=== PATIENT | male | born 2000 | race African-American/Black ===

== ENCOUNTER 2020-03-16 13:01 | Emergency (ER) | payer OTHER, MEDICARE, MEDICAID, SELFPAY ==
[2020-03-16 13:50] VITALS: BP 140/70; PULSE 100; RESP 16; TEMP 37.3; O2SAT 99; BMI 25.8
--- NOTE | 2020-03-16 14:03 | ED.MALEGU ---
HPI - Male Genitourinary General Chief complaint: Urogenital-Male Stated complaint: std recheck Time Seen by Provider: 03/16/20 14:03 Source: patient Mode of arrival: ambulatory Limitations: no limitations History of Present Illness HPI Narrative: 19 y/o male with history of Chlamydia in November presenting for STI check. His emblem drawer in called him today and told him he missed an appointment yesterday and he was due to re-check of his STI status. He is currently asymptomatic. Denies urethral discharge, testicular pain, fever, chills, hematuria, bloody urine. Associated symptoms: Reports denies other symptoms Related Data Sexually active: Yes (with 1 female, protected ) Allergies Allergy/AdvReac Type Severity Reaction Status Date / Time ENVIRONMENTAL Allergy Intermediate ITCHY Uncoded 02/18/20 16:51 WATERY EYES. Review of Systems Review of Systems: Constitutional: No Fever, No Chills ENT/Mouth: No sore throat, No Rhinorrhea, No Swallowing Difficulty Eyes: No Eye Pain, No Swelling, No Redness Cardiovascular: No Chest Pain, No SOB, No Orthopnea, No Edema Respiratory: No Cough, No Sputum, No Wheezing, No dyspnea Gastrointestinal: No Nausea, No Vomiting, No Diarrhea, No abdominal Pain, No Hematochezia, No Melena Genitourinary: No Dysuria, No Urinary Frequency, No Hematuria Musculoskeletal: No joint pain, No Myalgias Skin: No Skin Lesions, No rash Neuro: No Weakness, No Numbness, No Dizziness, No Headache Psych: No Anxiety/Panic, No Depression Heme/Lymph: No Bruising, No Lymphadenopathy Endocrine: No Polyuria, No Polydipsia PMFSH Past Medical History Attestation statement: The following information was validated with the patient. Medical History (Updated 03/16/20 @ 14:48 by GUMARO Alston) No known health problems STI (sexually transmitted infection) Social History Social History Advance Directives: Yes Advance Directives Information Provided: Yes Advance Directives on File: No Physical Exam Vital Signs: Vital Signs: Vital Signs Temp Pulse Resp BP Pulse Ox 03/16/20 13:50 99.1 F 100 16 140/70 H 99 Body Mass Index 25.8 Appearance: Alert. Oriented X3. No acute distress. HEENT: normal inspection Respiratory: No respiratory distress. Skin: Skin warm and dry. Normal skin color. Normal skin turgor. No rashes. exam deferred Neuro: Oriented X 3. No motor deficit. No sensory deficit. Course Course Course Narrative: asymptomatic at this time. he states after he was treated with abx for Chlymadia his symptoms completely resolved. He is currently sexually active with 1 female and uses protection. GC/CT sent but will hold off on treatment right now given he is asympomatic and has no exposures - test being done at request of PCP only. patient agrees with plan. Stable for d/c. Discharge Plan Discharge Clinical Impression: Normal exam Patient Disposition: Home, Self-Care Additional Instructions: You were tested for Chlaymadia and Gonorrhea today. We will call you and start you on antibiotics ONLY if the test is positive. If the test is negative, you will NOT receive a phone call. A copy of this note has been sent to your Assistant Manager Retail.
[2020-03-16 15:01] LABS: Glucose Urine UA NEG (NEG); Leukocyte Esterase Urine NEG (NEG); Nitrite Urine NEG (NEG); Specific Gravity - Urine 1.015 (1.005-1.025); Urine Blood NEG (NEG); Urine Ketones NEG (NEG); Urine Protein NEG (NEG-TRACE)
[2020-03-16 15:04] LABS: Appearance Urine CLEAR; Color Urine YELLOW
[2020-03-17 02:55] LABS: CT PCR NOT DETECTED (Not Detect.); NG PCR NOT DETECTED (Not Detect.)
== END 2020-03-16 14:58 | disposition home or self-care (01) ==
PROVIDERS: Physician Assistant; Emergency Provider Emergency Medicine; PCP Pediatrics
DX: A56.8 Sexually transmitted chlamydial infection of other sites (principal); Z20.2 Contact with and (suspected) exposure to infections with a predominantly sexual mode of transmission
CPT/HCPCS: 81003; 87491; 87591; 99283

== ENCOUNTER 2022-02-19 18:34 | Inpatient (IN) | payer OTHER, MEDICARE, MEDICAID, SELFPAY ==
--- NOTE | 2022-02-19 18:39 | ED.PSYCH ---
HPI - Psych General Chief Complaint: Psychiatric Symptoms <Isabella Kinney NP - Last Filed: 02/20/22 01:47> Stated Complaint: SECTION 12, SI W/PLAN <Isabella Kinney NP - Last Filed: 02/20/22 01:47> Time Seen by Provider: 02/19/22 22:19 <Isabella Kinney NP - Last Filed: 02/20/22 01:47> Source: patient and EMS <Isabella Kinney NP - Last Filed: 02/20/22 01:47> Mode of arrival: EMS <Isabella Kinney NP - Last Filed: 02/20/22 01:47> Limitations: no limitations <Isabella Kinney NP - Last Filed: 02/20/22 01:47> History of Present Illness HPI Narrative: 21-year-old male presents via EMS on section 12 for suicidal ideation. Patient reached out to [facility] in the community prior to presentation to the emergency department. He is not forthcoming about his plan, but states that he is extraordinarily depressed. He does not have any physical complaints at this time. He denies homicidal ideation and substance abuse. <Isabella Kinney NP - Last Filed: 02/20/22 01:47> MD complaint: suicidal ideation and feels depressed <Isabella Kinney NP - Last Filed: 02/20/22 01:47> Onset (ago): month(s) <Isabella Kinney NP - Last Filed: 02/20/22 01:47> Duration: constant and getting worse <Isabella Kinney NP - Last Filed: 02/20/22 01:47> History of same: No <Isabella Kinney NP - Last Filed: 02/20/22 01:47> Relieving factors: none <Isabella Kinney NP - Last Filed: 02/20/22 01:47> Associated psychiatric symptoms: depression and suicidal ideation <Isabella Kinney NP - Last Filed: 02/20/22 01:47> Associated symptoms: denies other symptoms <Isabella Kinney NP - Last Filed: 02/20/22 01:47> Treatments prior to arrival: placed on mental health hold <Isabella Kinney NP - Last Filed: 02/20/22 01:47> If self harm: admits thoughts of self harm and has plan <Isabella Kinney NP - Last Filed: 02/20/22 01:47> Related Data Home Medications: Home Medications Medication Instructions Recorded Confirmed No Known Home Meds 02/20/22 02/20/22 <Isabella Kinney NP - Last Filed: 02/20/22 01:47> Allergies/Adverse Reactions: Allergies Allergy/AdvReac Type Severity Reaction Status Date / Time ENVIRONMENTAL Allergy Intermediate ITCHY Uncoded 02/18/20 16:51 WATERY EYES. <Isabella Kinney NP - Last Filed: 02/20/22 01:47> Review of Systems Review of Systems: Constitutional: No Fever, No Chills ENT/Mouth: No Ear Pain, No Nasal Congestion, No sore throat Eyes: No Eye Pain, No Swelling, No Redness Cardiovascular: No Chest Pain, No SOB Respiratory: No Cough, No Sputum, No Dyspnea Gastrointestinal: No Nausea, No Vomiting, No Diarrhea, No Hematochezia, No Melena Genitourinary: No Dysuria, No Urinary Frequency, No Hematuria Musculoskeletal: No Myalgias Skin: No Skin Lesions, No rash Neuro: No Weakness, No Numbness, No Paresthesias, No Dizziness, No Headache Psych: positive Anxiety, positive Depression, positive SI Heme/Lymph: No Lymphadenopathy Endocrine: No Polyuria, No Polydipsia <Isabella Kinney NP - Last Filed: 02/20/22 01:47> Yes all other systems are reviewed and are negative <Isabella Kinney NP - Last Filed: 02/20/22 01:47> [facility] Past Medical History Attestation statement: The following information was validated with the patient. <Isabella Kinney NP - Last Filed: 02/20/22 01:47> Source: old records reviewed <Isabella Kinney NP - Last Filed: 02/20/22 01:47> Medical History: Medical History No known health problems STI (sexually transmitted infection) <FELICITAS Crawley Last Filed: 02/20/22 01:47> Social History Social History: Social History Advance Directives: No Advance Directives Information Provided: No <Isabella Kinney NP - Last Filed: 02/20/22 01:47> Physical Exam Vital Signs: Vital Signs: Last Vital Signs Temp 97.9 F 02/20/22 06:35 Pulse 80 02/20/22 06:35 Resp 16 02/20/22 06:35 BP 113/70 02/20/22 06:35 Pulse Ox 97 02/20/22 06:35 O2 Del Method 02/20/22 06:35 BMI result Body Mass Index 25.8 <Isabella Kinney NP - Last Filed: 02/20/22 01:47> Vital Signs: Last Vital Signs Temp 97.9 F 02/20/22 06:35 Pulse 80 02/20/22 06:35 Resp 16 02/20/22 06:35 BP 113/70 02/20/22 06:35 Pulse Ox 97 02/20/22 06:35 O2 Del Method 02/20/22 06:35 BMI result Body Mass Index 25.8 <Kiko Mariscal MD - Last Filed: 02/20/22 11:12> Appearance: Alert. Oriented X3. Moderate emotional distress. Eyes: Pupils equal, round and reactive to light. ENT: Pharynx normal. Neck: Normal inspection. Neck supple. CVS: Normal heart rate and rhythm. Pulses normal. Respiratory: No respiratory distress. Breath sounds normal. Abdomen: Soft and nontender. Skin: Skin warm and dry. Normal skin color. Normal skin turgor. Extremities: Gait well-balanced well coordinated. Neuro: No motor deficit. No sensory deficit. Cranial nerves 2-12 intact. <Isabella Kinney NP - Last Filed: 02/20/22 01:47> Course Course Course Narrative: 21-year-old male presents for suicidal ideation, on Section 12 from [facility] in the community. Patient is soft spoken, has poor eye contact, and states to be suicidal but will not disclose his plan. Has felt depression and suicidality for several weeks, worsening over the past few days. He does not report any physical complaints. Is polite, answering questions appropriately. Plan of care is for crisis consult, labs, and psychiatric consult. 01:45 patient is medically cleared. Patient is E SP follow-up in the a.m.. Physician observation at this time. <Isabella Kinney NP - Last Filed: 02/20/22 01:47> Reevaluation(s) Reevaluation #1: Physician observation: patient with increasing depression, not taking any medication since high school, in observation to see if he improves or if he needs admission N to evaluate <Kiko Mariscal MD - Last Filed: 02/20/22 11:12> Time: 08:42 <Kiko Mariscal MD - Last Filed: 02/20/22 11:12> Reevaluation #2: to be admitted, signed section 12 <Kiko Mariscal MD - Last Filed: 02/20/22 11:12> Time: 11:12 <Kiko Mariscal MD - Last Filed: 02/20/22 11:12> MDM - Psych Differential Diagnosis Differential diagnosis: Likely acute psychosis, suicidal ideation, depression, acute anxiety and mood disorder <Isabella Kinney NP - Last Filed: 02/20/22 01:47> Medical Records Attestation: I reviewed the patient's medical records. <Isabella Kinney NP - Last Filed: 02/20/22 01:47> Lab Data Attestation: I reviewed the patient's lab results. <Isabella Kinney NP - Last Filed: 02/20/22 01:47> Result diagrams: : 02/19/22 20:50 02/19/22 20:50 <Isabella Kinney NP - Last Filed: 02/20/22 01:47> Labs: Lab Results 02/19/22 02/19/22 02/19/22 Range/Units 20:50 20:50 20:50 WBC 8.4 (4.8-10.8) X10*3/uL RBC 4.87 (4.60-5.80) X10*6/uL Hgb 13.9 L (14.0-18.0) g/dl Hct 40.6 L (42.0-52.0) % MCV 83.4 (80.0-98.0) fL MCH 28.5 (27.0-33.0) pg MCHC 34.2 (31.0-36.0) g/dl RDW 12.8 (11.0-16.0) % Plt Count 288 (160-400) X10*3/uL MPV 9.2 L (9.4-12.4) fL Immature Gran % (Auto) 0.2 (0.0-0.4) % Neut % (Auto) 67.4 (45-73) % Lymph % (Auto) 24.2 (20-40) % [place] % (Auto) 6.6 (2-11) % Eos % (Auto) 1.4 (0-4) % Baso % (Auto) 0.2 (0-2) % Lymph # (Auto) 2.0 (1.2-4.9) X10*3/uL [place] # (Auto) 0.6 (0.1-1.2) X10*3/uL Eos # (Auto) 0.1 (0.0-0.4) X10*3/uL Baso # (Auto) 0.0 (0.0-0.2) X10*3/uL Abs Immat Gran (auto) 0.02 (0.00-0.03) X10*3/uL Absolute Neuts (auto) 5.7 (2.0-8.3) x10*3/uL Absolute Nucleated RBC 0.000 (0.0-0.012) X10*3/uL Nucleated RBC % (auto) 0.0 (0.0-0.2) /100WBC Sodium 141 (135-145) mmol/L Potassium 4.1 (3.3-5.1) mmol/L Chloride 106 (96-108) mmol/L Carbon Dioxide 25 (22-29) mmol/L Anion Gap 14 (12-20) BUN 14 (9-16) mg/dL Creatinine 0.99 (0.5-1.4) mg/dL Estim Creat Clear Calc 105.6 Estimated GFR > 60 Random Glucose 105 (60-115) mg/dL Calcium 9.9 (8.4-10.2) mg/dL Total Bilirubin 0.5 (0.0-1.0) mg/dL AST 16 (5-37) U/L ALT 16 (0-40) U/L Alkaline Phosphatase 61 (39-117) U/L Total Protein 7.2 (6.5-8.0) g/dL Albumin 4.5 (3.5-5.0) g/dL Urine Opiates Screen Not Detected (Not Detect) Urine Fentanyl Screen Not Detected (Not Detect) Ur Barbiturates Screen Not Detected (Not Detect) Ur Phencyclidine Scrn Not Detected (Not Detect) Ur Amphetamines Screen Not Detected (Not Detect) U Benzodiazepines Scrn Not Detected (Not Detect) Urine Cocaine Screen Not Detected (Not Detect) U Marijuana (THC) Screen POSITIVE H (Not Detect) Ethyl Alcohol < 10 mg/dL COVID-19 (POLY) (Negative) COVID-19 Clin Com 02/19/22 Range/Units 20:50 WBC (4.8-10.8) X10*3/uL RBC (4.60-5.80) X10*6/uL Hgb (14.0-18.0) g/dl Hct (42.0-52.0) % MCV (80.0-98.0) fL MCH (27.0-33.0) pg MCHC (31.0-36.0) g/dl RDW (11.0-16.0) % Plt Count (160-400) X10*3/uL MPV (9.4-12.4) fL Immature Gran % (Auto) (0.0-0.4) % Neut % (Auto) (45-73) % Lymph % (Auto) (20-40) % [place] % (Auto) (2-11) % Eos % (Auto) (0-4) % Baso % (Auto) (0-2) % Lymph # (Auto) (1.2-4.9) X10*3/uL [place] # (Auto) (0.1-1.2) X10*3/uL Eos # (Auto) (0.0-0.4) X10*3/uL Baso # (Auto) (0.0-0.2) X10*3/uL Abs Immat Gran (auto) (0.00-0.03) X10*3/uL Absolute Neuts (auto) (2.0-8.3) x10*3/uL Absolute Nucleated RBC (0.0-0.012) X10*3/uL Nucleated RBC % (auto) (0.0-0.2) /100WBC Sodium (135-145) mmol/L Potassium (3.3-5.1) mmol/L Chloride (96-108) mmol/L Carbon Dioxide (22-29) mmol/L Anion Gap (12-20) BUN (9-16) mg/dL Creatinine (0.5-1.4) mg/dL Estim Creat Clear Calc Estimated GFR Random Glucose (60-115) mg/dL Calcium (8.4-10.2) mg/dL Total Bilirubin (0.0-1.0) mg/dL AST (5-37) U/L ALT (0-40) U/L Alkaline Phosphatase (39-117) U/L Total Protein (6.5-8.0) g/dL Albumin (3.5-5.0) g/dL Urine Opiates Screen (Not Detect) Urine Fentanyl Screen (Not Detect) Ur Barbiturates Screen (Not Detect) Ur Phencyclidine Scrn (Not Detect) Ur Amphetamines Screen (Not Detect) U Benzodiazepines Scrn (Not Detect) Urine Cocaine Screen (Not Detect) U Marijuana (THC) Screen (Not Detect) Ethyl Alcohol mg/dL COVID-19 (POLY) Negative (Negative) COVID-19 Clin Com See Note <Isabella Kinney, FELICITAS - Last Filed: 02/20/22 01:47> Lab Results 02/19/22 02/19/22 02/19/22 Range/Units 20:50 20:50 20:50 WBC 8.4 (4.8-10.8) X10*3/uL RBC 4.87 (4.60-5.80) X10*6/uL Hgb 13.9 L (14.0-18.0) g/dl Hct 40.6 L (42.0-52.0) % MCV 83.4 (80.0-98.0) fL MCH 28.5 (27.0-33.0) pg MCHC 34.2 (31.0-36.0) g/dl RDW 12.8 (11.0-16.0) % Plt Count 288 (160-400) X10*3/uL MPV 9.2 L (9.4-12.4) fL Immature Gran % (Auto) 0.2 (0.0-0.4) % Neut % (Auto) 67.4 (45-73) % Lymph % (Auto) 24.2 (20-40) % [place] % (Auto) 6.6 (2-11) % Eos % (Auto) 1.4 (0-4) % Baso % (Auto) 0.2 (0-2) % Lymph # (Auto) 2.0 (1.2-4.9) X10*3/uL [place] # (Auto) 0.6 (0.1-1.2) X10*3/uL Eos # (Auto) 0.1 (0.0-0.4) X10*3/uL Baso # (Auto) 0.0 (0.0-0.2) X10*3/uL Abs Immat Gran (auto) 0.02 (0.00-0.03) X10*3/uL Absolute Neuts (auto) 5.7 (2.0-8.3) x10*3/uL Absolute Nucleated RBC 0.000 (0.0-0.012) X10*3/uL Nucleated RBC % (auto) 0.0 (0.0-0.2) /100WBC Sodium 141 (135-145) mmol/L Potassium 4.1 (3.3-5.1) mmol/L Chloride 106 (96-108) mmol/L Carbon Dioxide 25 (22-29) mmol/L Anion Gap 14 (12-20) BUN 14 (9-16) mg/dL Creatinine 0.99 (0.5-1.4) mg/dL Estim Creat Clear Calc 105.6 Estimated GFR > 60 Random Glucose 105 (60-115) mg/dL Calcium 9.9 (8.4-10.2) mg/dL Total Bilirubin 0.5 (0.0-1.0) mg/dL AST 16 (5-37) U/L ALT 16 (0-40) U/L Alkaline Phosphatase 61 (39-117) U/L Total Protein 7.2 (6.5-8.0) g/dL Albumin 4.5 (3.5-5.0) g/dL Urine Opiates Screen Not Detected (Not Detect) Urine Fentanyl Screen Not Detected (Not Detect) Ur Barbiturates Screen Not Detected (Not Detect) Ur Phencyclidine Scrn Not Detected (Not Detect) Ur Amphetamines Screen Not Detected (Not Detect) U Benzodiazepines Scrn Not Detected (Not Detect) Urine Cocaine Screen Not Detected (Not Detect) U Marijuana (THC) Screen POSITIVE H (Not Detect) Ethyl Alcohol < 10 mg/dL COVID-19 (POLY) (Negative) COVID-19 Clin Com 02/19/22 Range/Units 20:50 WBC (4.8-10.8) X10*3/uL RBC (4.60-5.80) X10*6/uL Hgb (14.0-18.0) g/dl Hct (42.0-52.0) % MCV (80.0-98.0) fL MCH (27.0-33.0) pg MCHC (31.0-36.0) g/dl RDW (11.0-16.0) % Plt Count (160-400) X10*3/uL MPV (9.4-12.4) fL Immature Gran % (Auto) (0.0-0.4) % Neut % (Auto) (45-73) % Lymph % (Auto) (20-40) % [place] % (Auto) (2-11) % Eos % (Auto) (0-4) % Baso % (Auto) (0-2) % Lymph # (Auto) (1.2-4.9) X10*3/uL [place] # (Auto) (0.1-1.2) X10*3/uL Eos # (Auto) (0.0-0.4) X10*3/uL Baso # (Auto) (0.0-0.2) X10*3/uL Abs Immat Gran (auto) (0.00-0.03) X10*3/uL Absolute Neuts (auto) (2.0-8.3) x10*3/uL Absolute Nucleated RBC (0.0-0.012) X10*3/uL Nucleated RBC % (auto) (0.0-0.2) /100WBC Sodium (135-145) mmol/L Potassium (3.3-5.1) mmol/L Chloride (96-108) mmol/L Carbon Dioxide (22-29) mmol/L Anion Gap (12-20) BUN (9-16) mg/dL Creatinine (0.5-1.4) mg/dL Estim Creat Clear Calc Estimated GFR Random Glucose (60-115) mg/dL Calcium (8.4-10.2) mg/dL Total Bilirubin (0.0-1.0) mg/dL AST (5-37) U/L ALT (0-40) U/L Alkaline Phosphatase (39-117) U/L Total Protein (6.5-8.0) g/dL Albumin (3.5-5.0) g/dL Urine Opiates Screen (Not Detect) Urine Fentanyl Screen (Not Detect) Ur Barbiturates Screen (Not Detect) Ur Phencyclidine Scrn (Not Detect) Ur Amphetamines Screen (Not Detect) U Benzodiazepines Scrn (Not Detect) Urine Cocaine Screen (Not Detect) U Marijuana (THC) Screen (Not Detect) Ethyl Alcohol mg/dL COVID-19 ([facility]Y) Negative (Negative) COVID-19 Clin Com See Note <Kiko Mariscal MD - Last Filed: 02/20/22 11:12> Discharge Plan Discharge Clinical Impression: Suicidal ideation, Depression <Isabella Kinney NP - Last Filed: 02/20/22 01:47> Patient Disposition: Still a Patient <Isabella Kinney NP - Last Filed: 02/20/22 01:47> Prescriptions: No Action No Known Home Meds <Isabella Kinney NP - Last Filed: 02/20/22 01:47>
[2022-02-19 18:49] VITALS: BP 132/76; PULSE 107; O2SAT 99
[2022-02-19 19:17] VITALS: BP 121/82; PULSE 65; RESP 14; TEMP 37.2; O2SAT 99; BMI 25.8
[2022-02-19 20:58] LABS: MANUAL DIFF FLAG NO
[2022-02-19 21:01] LABS: Basophils Percent Auto 0.2 % (0-2); Eosinophils Absolute Auto 0.1 X10*3/uL (0.0-0.4); Eosinophils Percent Auto 1.4 % (0-4); Hematocrit 40.6 % (42.0-52.0); Hemoglobin 13.9 g/dl (14.0-18.0); Imm Gran Abs Auto 0.02 X10*3/uL (0.00-0.03); Imm Gran Pct Auto 0.2 % (0.0-0.4); Lymphocytes Percent Auto 24.2 % (20-40); Mean Corpuscular HGB Conc 34.2 g/dl (31.0-36.0); Mean Corpuscular Hemoglobin 28.5 pg (27.0-33.0); Mean Corpuscular Volume 83.4 fL (80.0-98.0); Mean Platelet Volume 9.2 fL (9.4-12.4); Monocytes Absolute Auto 0.6 X10*3/uL (0.1-1.2); Monocytes Percent Auto 6.6 % (2-11); Neutrophils Absolute Auto 5.7 x10*3/uL (2.0-8.3); Neutrophils Percent Auto 67.4 % (45-73); Platelet Count 288 X10*3/uL (160-400); Red Blood Count 4.87 X10*6/uL (4.60-5.80); Red Cell Distribution Width 12.8 % (11.0-16.0); White Blood Count 8.4 X10*3/uL (4.8-10.8)
[2022-02-19 21:15] LABS: Alanine Aminotransferase 16 U/L (0-40); Albumin Level 4.5 g/dL (3.5-5.0); Alkaline Phosphatase 61 U/L (39-117); Anion Gap 14 (12-20); Aspartate Amino Transferase 16 U/L (5-37); Bilirubin Total 0.5 mg/dL (0.0-1.0); Blood Urea Nitrogen 14 mg/dL (9-16); COVID-19 Test Negative (Negative); Calcium 9.9 mg/dL (8.4-10.2); Carbon Dioxide 25 mmol/L (22-29); Chloride 106 mmol/L (96-108); Creatinine Clr Calc Pharmacy 105.6; Estimated Glomerular Filt Rate > 60; Ethanol < 10 mg/dL; Glucose Random 105 mg/dL (60-115); Potassium 4.1 mmol/L (3.3-5.1); Sodium 141 mmol/L (135-145); Total Protein 7.2 g/dL (6.5-8.0)
[2022-02-19 21:22] LABS: Amphetamine Screen Urine Not Detected (Not Detect); Barbiturates, Urine Not Detected (Not Detect); Benzodiazepines Screen Urine Not Detected (Not Detect); Cannabinoid Screen Urine POSITIVE (Not Detect); Cocaine Screen Urine Not Detected (Not Detect); Fentanyl, urine Not Detected (Not Detect); Opiate Screen Urine Not Detected (Not Detect); Phencyclidine Screen Urine Not Detected (Not Detect)
[2022-02-19] MEDS: Nicotine Polacrilex 2 MG GUM BUCCAL (22:35)
--- NOTE | 2022-02-20 06:27 | PC.NURSE ---
Patient slept though the night, no distress observed/reported, behavior calm, quiet, and depressed, patient remains isolative in his room, patient is currently not on any medication, per mother who is extremely concern about patient mental status reported that patient stop taking his antidepressant after high school, patient was seen by [facility] in the community/disposition is spending/patient will be reevaluated in the morning, behavior non concerning, VSS, will continue to monitor.
[2022-02-20 06:35] VITALS: BP 113/70; PULSE 80; RESP 16; TEMP 36.6; O2SAT 97
--- NOTE | 2022-02-20 07:43 | PC.NURSE ---
patient appears to remain at rest at present respirations are even and unlabored patient appears in no distress
--- NOTE | 2022-02-20 15:08 | PM.PSYCN ---
History of Present Illness Date of Service: t Chief Complaint: SECTION 12, SI W/PLAN Reason for Consult: Suicidal ideation Discussed with referring provider: Yes Sources of Information: patient interviewed, chart reviewed and crisis/core team assessment reviewed HPI Narrative: the patient is a 21-year-old male, single, living with his mother and 2 minor siblings, currently unemployed self refers to the emergency room by in crisis since he reported suicidal ideation. The patient reported that in the past he has received outpatient services, he has never been admitted into the hospital but he admitted for several years that he has had depressive symptoms elicited by depressed mood, anhedonia, lack of energy, feelings of hopelessness and worthlessness. 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 The patient reported that he smokes [employer] 1 a sporadically and he came up positive to ice so he was terminated from his program. The patient reported that this fat making very sad and more depressed and suddenly he started having suicidal ideation without a very clear plan that he refused to disclose. The patient adamantly denies psychotic symptoms. Past Psychiatric History: Denies prior inpatient admissions he received psychotherapy and medication management as a teenager but he cannot remember medications prescribed in the past. currently no treatment Medical Evaluation Reviewed: Yes Review of Systems Review of Systems Yes all other systems are reviewed and are negative [facility] Medical History No known health problems STI (sexually transmitted infection) Family History: denies Social History: the patient was raised by his mother, his biological father was not involved. His milestones were achieved at expected age. He attended regular school but later he was in special education due to behavioral disturbances. He dropout school and later got his GED and he was on [employer] ups and other vocational programs. He lives with his mother and 2 minor siblings. Substance History: Denies history of cocaine or heroin he smokes marijuana sporadically. Trauma History: Refused to elaborate Diagnostics Vital Signs (24Hr): Vital Signs - 24 hr 02/19/22 19:17 02/20/22 06:35 Temperature 98.9 F 97.9 F Pulse Rate 65 80 Respiratory Rate 14 16 Blood Pressure 121/82 113/70 Pulse Oximetry 99 97 Oxygen Delivery Method Room Air Room Air BMI result Body Mass Index 25.8 Labs Results: 02/19/22 20:50 02/19/22 20:50 Labs: Laboratory Results - last 48 hr 02/19/22 02/19/22 02/19/22 20:50 20:50 20:50 WBC 8.4 RBC 4.87 Hgb 13.9 L Hct 40.6 L MCV 83.4 MCH 28.5 MCHC 34.2 RDW 12.8 Plt Count 288 MPV 9.2 L Immature Gran % (Auto) 0.2 Neut % (Auto) 67.4 Lymph % (Auto) 24.2 [place] % (Auto) 6.6 Eos % (Auto) 1.4 Baso % (Auto) 0.2 Lymph # (Auto) 2.0 [place] # (Auto) 0.6 Eos # (Auto) 0.1 Baso # (Auto) 0.0 Abs Immat Gran (auto) 0.02 Absolute Neuts (auto) 5.7 Absolute Nucleated RBC 0.000 Nucleated RBC % (auto) 0.0 Sodium 141 Potassium 4.1 Chloride 106 Carbon Dioxide 25 Anion Gap 14 BUN 14 Creatinine 0.99 Estim Creat Clear Calc 105.6 Estimated GFR > 60 Random Glucose 105 Calcium 9.9 Total Bilirubin 0.5 AST 16 ALT 16 Alkaline Phosphatase 61 Total Protein 7.2 Albumin 4.5 Urine Opiates Screen Not Detected Urine Fentanyl Screen Not Detected Ur Barbiturates Screen Not Detected Ur Phencyclidine Scrn Not Detected Ur Amphetamines Screen Not Detected U Benzodiazepines Scrn Not Detected Urine Cocaine Screen Not Detected U Marijuana (THC) Screen POSITIVE H Ethyl Alcohol < 10 COVID-19 ([facility]) COVID-19 [place] Com 02/19/22 20:50 WBC RBC Hgb Hct MCV MCH MCHC RDW Plt Count MPV Immature Gran % (Auto) Neut % (Auto) Lymph % (Auto) [place] % (Auto) Eos % (Auto) Baso % (Auto) Lymph # (Auto) [place] # (Auto) Eos # (Auto) Baso # (Auto) Abs Immat Gran (auto) Absolute Neuts (auto) Absolute Nucleated RBC Nucleated RBC % (auto) Sodium Potassium Chloride Carbon Dioxide Anion Gap BUN Creatinine Estim Creat Clear Calc Estimated GFR Random Glucose Calcium Total Bilirubin AST ALT Alkaline Phosphatase Total Protein Albumin Urine Opiates Screen Urine Fentanyl Screen Ur Barbiturates Screen Ur Phencyclidine Scrn Ur Amphetamines Screen U Benzodiazepines Scrn Urine Cocaine Screen U Marijuana (THC) Screen Ethyl Alcohol COVID-19 ([facility]) Negative COVID-19 Clin Com See Note Mental Status Exam Mental Status Exam Patient Appearance: Appropriate Patient Orientation: Person and Situation Level of Consciousness: Awake and Alert Patient Behavior: Cooperative Mood Description: Calm Affect Description: Constricted Patient Cognition Impaired: No Ability to Follow Directions: Good Speech Pattern: Clear Hallucinations: None Delusions: Not Present Thought Process: Linear Thought Content: positive for Circumstantial Judgement: Fair Medications Medications Current Medications Nicotine Polacrilex (Nicotine Polacrilex 2 Mg Gum) 2 mg BUCCAL Q2H PRN PRN Reason: Nicotine Cravings Last Admin: 02/19/22 22:35 Dose: 2 mg Allergies Allergies Allergy/AdvReac Type Severity Reaction Status Date / Time ENVIRONMENTAL Allergy Intermediate ITCHY Uncoded 02/18/20 16:51 WATERY EYES. Assessment & Plan Assessment & Plan (1) Major depressive disorder: Status: Acute Code(s): F32.9 - Major depressive disorder, single episode, unspecified (2) Cannabis use disorder: Status: Acute Code(s): F12.90 - Cannabis use, unspecified, uncomplicated Plan the patient is a young male with a past history of behavioral disturbance as a teenager and dysphoria, currently on no treatment admitted for suicidal ideation and exacerbation of depressions after he lost his vocational program. The patient denies active psychotic symptoms and he wants treatment. Plan 1. Gather collateral information. 2. The patient has inpatient level of care criteria, apparently he has been admitted at M3. I spent __20____ minutes with the patient and/or on the patient floor today, greater than?50% of which was spent counseling/coordinating care. Informed Consent: understands
[2022-02-20 23:45] VITALS: BP 139/80; PULSE 68; RESP 16; TEMP 36.7; O2SAT 99
[2022-02-21] MEDS: traZODone HCL 50 MG TABLET PO ×2 (01:00→21:44)
[2022-02-21] MEDS: Nicotine Polacrilex 2 MG GUM BUCCAL ×2 (01:00→17:18)
[2022-02-21] MEDS: hydrOXYzine HCL 25 MG TABLET PO (01:00)
--- NOTE | 2022-02-21 04:28 | PC.NURSE ---
Pt signed a 3 day notice upon admission to unit, up on 02/23/22.
--- NOTE | 2022-02-21 05:05 | PC.ADMIT ---
Addendum entered by Cindy Bae RN 02/21/22 05:09: Pt is 21 yo male admitted to unit after referral from [facility] through the ED. Arrived on unit at 2154. Pt had signed a CV, upon admission to unit pt signed a 3day notice that will be up on 02/23. Pt denies any medical issues. Pt denies current substance use. Stated has not used THC in 5 weeks but utox was positive for THC. Pt states uses Sean pouches approximately 4-5 daily, nicotine replacement pouches. Wants to try nicotine patch lowest dose as he feels 14mg would be too high for him. Pt stated that he was thrown out of his [employer] program because he tested positive for THC. Pt states he hasn't used THC for 5 weeks at least. In addition to this event, pt stated he gave up his THC, lost his [employer] position in class, has been trying to get a car and his license and he found himself googling ways to end his life. At this point pt realized his thinking was wrong, became afraid and called a hotline for help, then routed through [facility], was taken by EMS to [facility]. Pt states he has a lack of support from friends and family at this time. Pt presents in hospital [facility] with depressed affect. Linear and clear thinking and pt is future oriented. Pt would like to be able to get therapist and on effective med for depression, states prozac did work for him years ago but he felt it stopped working and he stopped taking it. Provider stonecutter apprentice hand Peggy notified of admission and orders obtained. Pt placed on 15 min safety checks. Pt reports feeling safe in hospital. Original Note: Pt is 21 yo male admitted to unit after referral from [facility] through the ED. Arrived on unit at 2154. Pt had signed a CV, upon admission to unit pt signed a 3day notice that will be up on 02/23. Pt denies any medical issues. Pt denies substamnc
[2022-02-21 08:00] VITALS: BP 101/70; PULSE 70; RESP 20; TEMP 36.7; O2SAT 97
--- NOTE | 2022-02-21 09:30 | HO.PSYADMNOT ---
HPI Date of Service: 02/21/22 Chief Complaint: depression, si Sources of Information: patient interviewed, chart reviewed and crisis/core team assessment reviewed HPI Subjective Notes: Hallman Warning, Conditional Voluntary and 3 Day Narrative: Mr. Antonio is a 21 year-old male with hx of MDD. He called suicide line who referred him to crisis. He self presented to [facility] reporting suicidal ideation in context of being asked to leave academic program through [employer] as his utox was still positive for cannabis after more than 40 days when he was asked to stop using. Pt denies using any cannabis and states he felt frustrated overwhelmed, disappointed. On the unit, pt reports feeling less overwhelmed in that he reports he had some time to think about his future and that there are other options for him is he can't return to the program. He denies suicidal or homicidal ideation. However, he reports feeling depressed, not suicidal for sometime. He reports living with his mother and siblings. He reports some difficulties with relationship with his mother and at times not feeling supported by her. He denies hx of VH/AH. He reports sleeping well. No changes in appetite. No hx of hypomania or david. No hx of suicide attempts. Past Psychiatric History: Denies prior inpatient admissions he received psychotherapy and medication management as a teenager but he cannot remember medications prescribed in the past. currently no treatment Past med trials: prozasera Suicide attempts: none Medical Evaluation Reviewed: Yes [facility] Medical History No known health problems STI (sexually transmitted infection) Family History: denies Social History: the patient was raised by his mother, his biological father was not involved. His milestones were achieved at expected age. He attended regular school but later he was in special education due to behavioral disturbances. He dropout school and later got his GED and he was on [employer] and other vocational programs. He lives with his mother and 2 minor siblings. Trauma History: Refused to elaborate Diagnostics Vital Signs (24Hr): Vital Signs - 24 hr 02/20/22 23:45 Temperature 98.1 F Pulse Rate 68 Respiratory Rate 16 Blood Pressure 139/80 Pulse Oximetry 99 Oxygen Delivery Method Room Air BMI result Body Mass Index 25.8 Labs Results: 02/19/22 20:50 02/19/22 20:50 Labs: Laboratory Results - last 48 hr 02/19/22 02/19/22 02/19/22 20:50 20:50 20:50 WBC 8.4 RBC 4.87 Hgb 13.9 L Hct 40.6 L MCV 83.4 MCH 28.5 MCHC 34.2 RDW 12.8 Plt Count 288 MPV 9.2 L Immature Gran % (Auto) 0.2 Neut % (Auto) 67.4 Lymph % (Auto) 24.2 [place] % (Auto) 6.6 Eos % (Auto) 1.4 Baso % (Auto) 0.2 Lymph # (Auto) 2.0 [place] # (Auto) 0.6 Eos # (Auto) 0.1 Baso # (Auto) 0.0 Abs Immat Gran (auto) 0.02 Absolute Neuts (auto) 5.7 Absolute Nucleated RBC 0.000 Nucleated RBC % (auto) 0.0 Sodium 141 Potassium 4.1 Chloride 106 Carbon Dioxide 25 Anion Gap 14 BUN 14 Creatinine 0.99 Estim Creat Clear Calc 105.6 Estimated GFR > 60 Random Glucose 105 Calcium 9.9 Total Bilirubin 0.5 AST 16 ALT 16 Alkaline Phosphatase 61 Total Protein 7.2 Albumin 4.5 Urine Opiates Screen Not Detected Urine Fentanyl Screen Not Detected Ur Barbiturates Screen Not Detected Ur Phencyclidine Scrn Not Detected Ur Amphetamines Screen Not Detected U Benzodiazepines Scrn Not Detected Urine Cocaine Screen Not Detected U Marijuana (THC) Screen POSITIVE H Ethyl Alcohol < 10 COVID-19 (POLY) COVID-[employer] 02/19/22 20:50 WBC RBC Hgb Hct MCV MCH MCHC RDW Plt Count MPV Immature Gran % (Auto) Neut % (Auto) Lymph % (Auto) [place] % (Auto) Eos % (Auto) Baso % (Auto) Lymph # (Auto) [place] # (Auto) Eos # (Auto) Baso # (Auto) Abs Immat Gran (auto) Absolute Neuts (auto) Absolute Nucleated RBC Nucleated RBC % (auto) Sodium Potassium Chloride Carbon Dioxide Anion Gap BUN Creatinine Estim Creat Clear Calc Estimated GFR Random Glucose Calcium Total Bilirubin AST ALT Alkaline Phosphatase Total Protein Albumin Urine Opiates Screen Urine Fentanyl Screen Ur Barbiturates Screen Ur Phencyclidine Scrn Ur Amphetamines Screen U Benzodiazepines Scrn Urine Cocaine Screen U Marijuana (THC) Screen Ethyl Alcohol COVID-19 (POLY) Negative COVID-19 Interactive TKO Com See Note Meds/Allergies Meds Home Medications Medication Instructions Recorded Confirmed Type No Known Home Meds 02/20/22 02/20/22 History Allergies Allergies Allergy/AdvReac Type Severity Reaction Status Date / Time ENVIRONMENTAL Allergy Intermediate ITCHY Uncoded 02/18/20 16:51 WATERY EYES. Mental Status Exam Mental Status Exam Narrative: Appearance: casually groomed, fair hygiene in NAD Behavior:cooperative psychomotor: no agitation or retardation noted Speech: clear, normal rate/rhythm/volume, spontaneous Thought process: linear Thought content: no signs of psychosis, future oriented more optimistic Mood: better Affect: congruent SI:none HI:none VH/AH:none Delusions:none Insight/judgment:fair x 2. Memory/cog: alert, oriented x 3. grossly intact to conversational testing. Assessment & Plan Assessment & Plan (1) Major depressive disorder: Status: Acute Code(s): F32.9 - Major depressive disorder, single episode, unspecified Plan Mr. Antonio is a 21 year-old male with hx of MDD, increase depression and SI in context of being asked ot leave [employer] after he tested positive for cannabis more than 30 days after asked not to use any substances. Pt reports he has not used for more than one month and that he does not know why it continues to be positive. We discussed risks, benefits and alternative treatment options. Pt agrees to start prozac as he has been struggling with depression for a long time. he denies SI/HI. He also agrees to be connected with OP providers. PLAN 1. admit to m3, cv, 15 mins checks 2. start prozac 10mg po daily- titrate. 3. obtain collateral information 4. aftercare planning. Patient educated on: diagnosis Reason for continued inpatient stay Substantial Risk for: harm to self
[2022-02-21 09:33] LABS: Estimated Average Glucose 108 mg/dL; Hemoglobin A1c % 5.4 %
[2022-02-21 10:14] LABS: Cholesterol 163 mg/dL; HDL Cholesterol 34 mg/dL; LDL Cholesterol Calculated 112 mg/dl; Triglycerides 87 mg/dL
[2022-02-21 10:38] LABS: Free T4 (Free Thyroxine) 1.01 ng/dL (0.71-1.85); Thyroid Stimulating Hormone 1.89 uIU/mL (0.32-4.0)
[2022-02-21 10:50] LABS: Folate 17.6 ng/mL (> or = 4.0); Vitamin B12 333 pg/mL (200-900)
[2022-02-21] MEDS: FLUoxetine HCl Oral Solution 20 MG/5 ML SOLUTION 10 MG PO (17:18)
[2022-02-21 19:00] VITALS: BP 128/72; PULSE 69; RESP 16; TEMP 36.6; O2SAT 99
[2022-02-22 07:00] VITALS: BMI 26.2
[2022-02-22 09:00] VITALS: BP 122/80; PULSE 97; RESP 18; TEMP 36.5; O2SAT 98
[2022-02-22] MEDS: FLUoxetine HCl Oral Solution 20 MG/5 ML SOLUTION 10 MG PO (09:21)
[2022-02-22] MEDS: Nicotine Polacrilex 2 MG GUM BUCCAL ×2 (09:21→19:10)
--- NOTE | 2022-02-22 13:40 | HO.PSYCHPN ---
Subjective Subjective Date of Service: 02/22/22 Reason For Visit: depression, si Subjective Notes: Conditional Voluntary Interim History: pt reports feeling better, future oriented. He states this time off has helped me put things in perspective. 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 No SI/HI. he reports he slept well. ready for dc tomorrow. Medication Compliance: Yes Review of Systems Review of Systems Constitutional: No Fever, No Chills ENT/Mouth: No Ear Pain, No Nasal Congestion, No sore throat Eyes: No Eye Pain, No Swelling, No Redness Cardiovascular: No Chest Pain, No SOB Respiratory: No Cough, No Sputum, No Dyspnea Gastrointestinal: No Nausea, No Vomiting, No Diarrhea, No Hematochezia, No Melena Genitourinary: No Dysuria, No Urinary Frequency, No Hematuria Musculoskeletal: No Myalgias Skin: No Skin Lesions, No rash Neuro: No Weakness, No Numbness, No Paresthesias, No Dizziness, No Headache Psych: positive Anxiety, positive Depression, positive SI Heme/Lymph: No Lymphadenopathy Endocrine: No Polyuria, No Polydipsia Yes all other systems are reviewed and are negative Constitutional: Reports no additional constitutional complaints Eyes: Reports no additional eye complaints Reports system reviewed and no additional complaints, except as documented Cardiovascular: Reports no additional cardiovascular complaints Mental Status Exam Mental Status Exam Narrative: Appearance: casually groomed, fair hygiene in NAD Behavior:cooperative psychomotor: no agitation or retardation noted Speech: clear, normal rate/rhythm/volume, spontaneous Thought process: linear Thought content: no signs of psychosis, future oriented more optimistic Mood: better Affect: congruent SI:none HI:none VH/AH:none Delusions:none Insight/judgment:fair x 2. Memory/cog: alert, oriented x 3. grossly intact to conversational testing. Diagnostics Vital Signs (24Hr): Vital Signs - 24 hr 02/21/22 19:00 02/22/22 09:00 Temperature 97.8 F 97.7 F Pulse Rate 69 97 Respiratory Rate 16 18 Blood Pressure 128/72 122/80 Pulse Oximetry 99 98 Oxygen Delivery Method Room Air Room Air BMI result Body Mass Index 26.2 Labs Results: 02/19/22 20:50 02/19/22 20:50 Labs: Laboratory Results - last 48 hr 02/21/22 02/21/22 02/21/22 09:11 09:11 09:11 Estimat Average Glucose 108 Hemoglobin A1c % 5.4 Magnesium 2.0 Triglycerides 87 Cholesterol 163 LDL Cholesterol, Calc 112 HDL Cholesterol 34 Vitamin B12 333 Folate 17.6 TSH 1.89 Free T4 1.01 Medications Medications Current Medications Acetaminophen (Acetaminophen 325 Mg Tablet) 650 mg PO Q6H PRN PRN Reason: Headache/Pain Mild Scale (1-3) Al Hydroxide/Mg Hydroxide (Magnesium Hydrox/Alum Hydrox 30 Ml Oral.Susp) 30 ml PO Q6H PRN PRN Reason: Heartburn/Nausea Fluoxetine HCl (Fluoxetine Hcl 20 Mg Capsule) 20 mg PO DAILY LEILA Hydroxyzine HCl (Hydroxyzine Hcl 25 Mg Tablet) 25 mg PO Q6H PRN PRN Reason: Anxiety Last Admin: 02/21/22 01:00 Dose: 25 mg Magnesium Hydroxide (Milk Of Magnesia 30 Ml Oral.Susp) 30 ml PO DAILY PRN PRN Reason: Constipation Nicotine Polacrilex (Nicotine Polacrilex 2 Mg Gum) 2 mg BUCCAL Q2H PRN PRN Reason: Nicotine Cravings Last Admin: 02/22/22 09:21 Dose: 2 mg Trazodone HCl (Trazodone Hcl 50 Mg Tablet) 50 mg PO BEDTIME PRN PRN Reason: Insomnia Last Admin: 02/21/22 21:44 Dose: 50 mg Allergies Allergies Allergy/AdvReac Type Severity Reaction Status Date / Time ENVIRONMENTAL Allergy Intermediate ITCHY Uncoded 02/18/20 16:51 WATERY EYES. Assessment & Plan Assessment & Plan (1) Major depressive disorder: Status: Acute Code(s): F32.9 - Major depressive disorder, single episode, unspecified Plan Mr. Antonio is a 21 year-old male with hx of MDD, increase depression and SI in context of being asked ot leave [email or web address] after he tested positive for cannabis more than 30 days after asked not to use any substances. Pt reports he has not used for more than one month and that he does not know why it continues to be positive. We discussed risks, benefits and alternative treatment options. Pt agrees to start prozac as he has been struggling with depression for a long time. he denies SI/HI. He also agrees to be connected with OP providers. PLAN 1. admit to m3, cv, 15 mins checks 2. start prozac 10mg po daily- titrate. 3. obtain collateral information 4. aftercare planning. 02/22 continue current meds. I spent minutes with the patient and/or on the patient floor today, greater than?50% of which was spent counseling/coordinating care. Reason for contiued inpatient stay Substantial Risk for: stable for discharge
[2022-02-22] MEDS: traZODone HCL 50 MG TABLET PO (21:29)
[2022-02-22] MEDS: hydrOXYzine HCL 25 MG TABLET PO (21:29)
[2022-02-23 08:00] VITALS: BP 119/82; PULSE 74; RESP 17; TEMP 36.6; O2SAT 98
--- NOTE | 2022-02-23 09:59 | P.DS_ITS ---
DS: Providers Provider Date of Service: 02/23/22 Date of admission: 02/20/22 21:32 Primary care physician: Unknown Physician DS: Diagnosis Discharge Diagnosis (1) Major depressive disorder: Status: Acute DS: Medications Discharge Medications Home Medications: Previous Rx's Medication Instructions Recorded fluoxetine 20 mg capsule 20 mg PO DAILY #30 caps 02/23/22 nicotine (polacrilex) 2 mg gum 2 mg buccal Q2H PRN Nicotine 02/23/22 Cravings #30 ea trazodone 50 mg tablet 50 mg PO BEDTIME PRN Insomnia #30 02/23/22 tabs Mental Status Exam Mental Status Exam Narrative: Appearance: casually groomed, fair hygiene in NAD Behavior:cooperative psychomotor: no agitation or retardation noted Speech: clear, normal rate/rhythm/volume, spontaneous Thought process: linear Thought content: no signs of psychosis, future oriented more optimistic Mood: better Affect: congruent SI:none HI:none VH/AH:none Delusions:none Insight/judgment:fair x 2. Memory/cog: alert, oriented x 3. grossly intact to conversational testing. Data Data Completed and Pending Completed studies during hospitalization [Text1]: 02/19/22 02/19/22 02/19/22 20:50 20:50 20:50 WBC 8.4 RBC 4.87 Hgb 13.9 L Hct 40.6 L MCV 83.4 MCH 28.5 MCHC 34.2 RDW 12.8 Plt Count 288 MPV 9.2 L Immature Gran % (Auto) 0.2 Neut % (Auto) 67.4 Lymph % (Auto) 24.2 [place] % (Auto) 6.6 Eos % (Auto) 1.4 Baso % (Auto) 0.2 Lymph # (Auto) 2.0 [place] # (Auto) 0.6 Eos # (Auto) 0.1 Baso # (Auto) 0.0 Abs Immat Gran (auto) 0.02 Absolute Neuts (auto) 5.7 Absolute Nucleated RBC 0.000 Nucleated RBC % (auto) 0.0 Sodium 141 Potassium 4.1 Chloride 106 Carbon Dioxide 25 Anion Gap 14 BUN 14 Creatinine 0.99 Estim Creat Clear Calc 105.6 Estimated GFR > 60 Random Glucose 105 Estimat Average Glucose Hemoglobin A1c % Calcium 9.9 Magnesium Total Bilirubin 0.5 AST 16 ALT 16 Alkaline Phosphatase 61 Total Protein 7.2 Albumin 4.5 Triglycerides Cholesterol LDL Cholesterol, Calc HDL Cholesterol Vitamin B12 Folate TSH Free T4 Urine Opiates Screen Not Detected Urine Fentanyl Screen Not Detected Ur Barbiturates Screen Not Detected Ur Phencyclidine Scrn Not Detected Ur Amphetamines Screen Not Detected U Benzodiazepines Scrn Not Detected Urine Cocaine Screen Not Detected U Marijuana (THC) Screen POSITIVE H Ethyl Alcohol < 10 COVID-19 (POLY) COVID-19 Clin Com 02/19/22 02/21/22 02/21/22 20:50 09:11 09:11 WBC RBC Hgb Hct MCV MCH MCHC RDW Plt Count MPV Immature Gran % (Auto) Neut % (Auto) Lymph % (Auto) [place] % (Auto) Eos % (Auto) Baso % (Auto) Lymph # (Auto) [place] # (Auto) Eos # (Auto) Baso # (Auto) Abs Immat Gran (auto) Absolute Neuts (auto) Absolute Nucleated RBC Nucleated RBC % (auto) Sodium Potassium Chloride Carbon Dioxide Anion Gap BUN Creatinine Estim Creat Clear Calc Estimated GFR Random Glucose Estimat Average Glucose 108 Hemoglobin A1c % 5.4 Calcium Magnesium 2.0 Total Bilirubin AST ALT Alkaline Phosphatase Total Protein Albumin Triglycerides 87 Cholesterol 163 LDL Cholesterol, Calc 112 HDL Cholesterol 34 Vitamin B12 Folate TSH 1.89 Free T4 1.01 Urine Opiates Screen Urine Fentanyl Screen Ur Barbiturates Screen Ur Phencyclidine Scrn Ur Amphetamines Screen U Benzodiazepines Scrn Urine Cocaine Screen U Marijuana (THC) Screen Ethyl Alcohol COVID-19 (POLY) Negative COVID-19 Clin Com See Note 02/21/22 09:11 WBC RBC Hgb Hct MCV MCH MCHC RDW Plt Count MPV Immature Gran % (Auto) Neut % (Auto) Lymph % (Auto) [place] % (Auto) Eos % (Auto) Baso % (Auto) Lymph # (Auto) [place] # (Auto) Eos # (Auto) Baso # (Auto) Abs Immat Gran (auto) Absolute Neuts (auto) Absolute Nucleated RBC Nucleated RBC % (auto) Sodium Potassium Chloride Carbon Dioxide Anion Gap BUN Creatinine Estim Creat Clear Calc Estimated GFR Random Glucose Estimat Average Glucose Hemoglobin A1c % Calcium Magnesium Total Bilirubin AST ALT Alkaline Phosphatase Total Protein Albumin Triglycerides Cholesterol LDL Cholesterol, Calc HDL Cholesterol Vitamin B12 333 Folate 17.6 TSH Free T4 Urine Opiates Screen Urine Fentanyl Screen Ur Barbiturates Screen Ur Phencyclidine Scrn Ur Amphetamines Screen U Benzodiazepines Scrn Urine Cocaine Screen U Marijuana (THC) Screen Ethyl Alcohol COVID-19 (POLY) COVID-19 Clin Com DS: Summary Hospital Course Hospital Course: Subjective Notes: Hallman Warning, Conditional Voluntary and 3 Day Narrative: Mr. Antonio is a 21 year-old male with hx of MDD. He called suicide line who referred him to crisis. He self presented to [facility] reporting suicidal ideation in context of being asked to leave academic program through [employer] as his utox was still positive for cannabis after more than 40 days when he was asked to stop using. Pt denies using any cannabis and states he felt frustrated overwhelmed, disappointed. On the unit, pt reports feeling less overwhelmed in that he reports he had some time to think about his future and that there are other options for him is he can't return to the program. He denies suicidal or homicidal ideation. However, he reports feeling depressed, not suicidal for sometime. He reports living with his mother and siblings. He reports some difficulties with relationship with his mother and at times not feeling supported by her. He denies hx of VH/AH. He reports sleeping well. No changes in appetite. No hx of hypomania or david. No hx of suicide attempts. Past Psychiatric History: ? Denies prior inpatient admissions he received psychotherapy and medication management as a teenager but he cannot remember medications prescribed in the past. currently no treatment ? Past med trials: prozac Suicide attempts: none Medical Evaluation Reviewed: Yes HOSPITAL COURSE On the unit, Mr. Antonio was admitted on a CV and placed on 15 minutes checks for safety. Pt presented slightly improved mood in that he reported feeling less overwhelmed and distressed about being terminated from [employer]. He presented as more future oriented and looking into other options to continue his studies. However, pt did report hx of depression and agreed to start antidepressant. We discussed risks, benefits and alternative treatment options. He agreed to start prozac. His affect gradually presented as brighter. He denied suicidal or homicidal ideation. No signs of aggression towards self or others. No signs of aggression towards self or others. Collateral information gathered from mother who denies any safety concerns at time of discharge. Pt agreed to continue OP psych tx. Status at Discharge Cognitive/behavioral status at discharge: Pt with brighter, non labile mood. No SI/HI. No VH/AH. Future oriented. No signs of aggression towards self or others others. Functional status at discharge: independent ambulation Overall status at discharge: patient is progressing back to baseline Time Spent with Patient Time attestation: Total time spent providing and/or coordinating discharge services: Discharge Plan Discharge Patient Disposition: Home Health Service Discharge Diagnosis: Mdd, recurrent, moderate Referrals: BELINDA MCGOVERN, THERAPY INTAKE [Other] - 02/26/22 3:00 pm (VIDEO CALL AP POINTMENT) ROXANA [facility]OWAY ESOL TEACHER [Other] - 1 Week (PHONE WITH GENERAL QUESTIONS IF NEEDED) [facility] [Physician] - 1 Week Discharge Medications: New nicotine (polacrilex) 2 mg Gum 2 mg buccal Q2H PRN (Reason: Nicotine Cravings) Qty: 30 0RF trazodone 50 mg Tablet 50 mg PO BEDTIME PRN (Reason: Insomnia) Qty: 30 0RF fluoxetine 20 mg Capsule 20 mg PO DAILY Qty: 30 0RF Discharge Orders: Discharge Order (Routine); Ordered 02/23/22 Ordered By: Jessi Tapia Diet: Regular diet Activity on Discharge: As tolerated Stand Alone Forms: Patient Portal Discharge page Care Plan Goals: 1. Maintain mood 2. No SI/HI Health Concerns: Follow up with PCP Plan of Treatment: 1. Take medications as prescribed 2. Go to nearest ED or call 911 in event of emergency Assessment: Pt with brighter affect. No SI/HI. No signs of psychosis/delusions. Future oriented. No signs of aggression towards self or others.
[2022-02-23] MEDS: FLUoxetine HCl 20 MG CAPSULE PO (10:20)
[2022-02-23] MEDS: Nicotine Polacrilex 2 MG GUM BUCCAL (10:24)
--- NOTE | 2022-02-23 12:43 | PC.NURSE ---
pt discharged home with, mother. Pt dischrged home to family. Pt denies ideation or intent to hurt self or others. Pt verbalized understanding of discharge plan and medications
== END 2022-02-23 11:30 | disposition home health service (06) | DRG 881 ==
LOC: HO.ED 02-20 14:54 → HO.PADLT16 02-20 21:39
PROVIDERS: Nurse Practitioner Family; Registered Nurse; Admitting Provider Psychiatry & Neurology Psychiatry; Emergency Provider Emergency Medicine; Visit Provider Social Worker
DX: F32.9 Major depressive disorder, single episode, unspecified (principal); R45.851 Suicidal ideations; F17.220 Nicotine dependence, chewing tobacco, uncomplicated; Z71.6 Tobacco abuse counseling; Z20.822 Contact with and (suspected) exposure to COVID-19; Z56.0 Unemployment, unspecified
CPT/HCPCS: 36415; 80053; 80061; 80307; 82077; 82607; 82746; 83036; 83735; 84439; 84443; 85025; 87635; 99285

== ENCOUNTER 2023-04-19 10:46 | Emergency (ER) | payer OTHER, MEDICARE, MEDICAID, SELFPAY ==
--- NOTE | ~2023-04-19 | XR_ITS ---
EXAMINATION: XR CHEST CLINICAL INFORMATION: Cough and shortness of breath. COMPARISON: None available. TECHNIQUE: 2 views of the chest were obtained. FINDINGS: The lungs are well expanded. No focal consolidation. No pleural effusion. Cardiac silhouette is within normal limits. XR/XR chest 2V IMPRESSION: No acute abnormality.
[2023-04-19 10:50] VITALS: BP 132/86; PULSE 69; RESP 16; TEMP 36.7; O2SAT 98; BMI 26.1
[2023-04-19 11:16] LABS: COVID-19 Test Negative (Negative); IDNOW Serial# BCCEAD1C
--- NOTE | 2023-04-19 11:32 | ED.URI ---
HPI - URI/Sore Throat General Chief Complaint: Upper Respiratory Symptoms Stated Complaint: Diff Breathing Time Seen by Provider: 04/19/23 11:08 Source: patient, family, RN notes reviewed and old records reviewed Mode of arrival: ambulatory History of Present Illness HPI Narrative: 22-year-old male with a past medical history of asthma, presenting to the ED complaining of productive cough, SOB, chest discomfort/tightness, and sore throat x2 weeks. States he does not have inhalers or neb machine at home. Denies fever, chills, recent travel, pedal edema, sick contacts, difficulty or inability to swallow MD elicited complaint: cough Related Data Previous Rx's Medication Instructions Recorded nicotine (polacrilex) 2 mg gum 2 mg buccal Q2H PRN Nicotine 02/23/22 Cravings #30 ea fluoxetine 20 mg capsule (Prozac) 20 mg PO DAILY #30 caps 03/26/22 trazodone 50 mg tablet 50 mg PO BEDTIME #30 tabs 03/26/22 albuterol sulfate 90 mcg/actuation 2 puff inhalation Q4-6H PRN 04/19/23 aerosol inhaler shortness of breath or wheezing #6.7 grams prednisone 20 mg tablet 40 mg (2 x 20 mg) PO DAILY 5 days 04/19/23 #10 tabs Allergies Allergy/AdvReac Type Severity Reaction Status Date / Time ENVIRONMENTAL Allergy Intermediate ITCHY Uncoded 02/18/20 16:51 WATERY EYES. Review of Systems Review of Systems: Constitutional: No Fever, No Chills ENT/Mouth: No Ear Pain, No Nasal Congestion, No Sinus Pain, No Hoarseness, + sore throat, No Rhinorrhea, No Swallowing Difficulty Cardiovascular: + Chest Pain, + SOB Respiratory: + Cough, + Sputum, + Wheezing Gastrointestinal: No Nausea, No Vomiting, No Diarrhea, No Constipation, No Abdominal pain Musculoskeletal: No joint pain, No Myalgias, No Joint Swelling Skin: No Skin Lesions, No rash Neuro: No Weakness Yes all other systems are reviewed and are negative Constitutional: Constitutional: Reports as per [facility] Past Medical History Attestation statement: The following information was validated with the patient. Source: old records reviewed Medical History STI (sexually transmitted infection) No known health problems Social History Social History Household Members: Family Household Members Other:: Mom, 2 younger brothers Housing: Apartment Do you presently have visiting nurse or other home services: No Patient Tobacco Use Status: Current everyday Tobacco user Tobacco use type: Smokeless Tobacco e-Cigarette/Vaping Use: Never Used Second Hand Smoke Exposure: No Substance Use Type: Marijuana Advance Directives: No Advance Directives Information Provided: No service: No Physical Exam Vital Signs: Vital Signs: Last Vital Signs Temp 98.1 F 04/19/23 10:50 Pulse 72 04/19/23 12:11 Resp 16 04/19/23 12:11 BP 132/86 04/19/23 10:50 Pulse Ox 98 04/19/23 10:50 O2 Del Method Room Air 04/19/23 10:50 BMI result Body Mass Index 26.1 Const: General: cooperative, healthy appearing, no acute distress, alert and awake Orientation/consciousness: patient oriented x3 Limitations: no limitations HEENT: Head: Yes normal to inspection and Yes atraumatic Ears: hearing grossly normal bilaterally General nose exam: Normal external nose present Face and sinus: Yes normal facial exam Throat: Yes tonsils normal, Yes uvula midline, No peritonsillar mass, Yes posterior oropharynx abnormal (Erythematous. No exudates), No uvula laterally displaced and No uvular edema Eyes: General: appearance normal, both eyes and all related structures EOM: EOMs intact bilaterally Neck: Neck: Yes normal visual inspection and Yes no meningeal signs Resp: Effort & Inspection: normal respiratory effort and no respiratory distress Auscultation: wheezes expiratory wheezes (mild) and throughout Cardio: Rate: regular rate Heart sounds: S1 normal heart sound present and S2 normal heart sound present Skin: Rashes: no rashes Wounds: no wounds Neuro: General: patient oriented x3, tone normal and no meningeal signs Cranial nerves: Yes CN's II-XII intact bilaterally Gait exam (Neuro): Normal gait present Extrem: General: Yes normal to inspection Course Course Course Narrative: XR chest 2V IMPRESSION: No acute abnormality. -COVID and strep negative Results discussed with patient including worrisome signs and symptoms and strict return precautions, and when to return to the emergency department. They verbalized understanding and feel safe for discharge at this time. Medications Administered Discontinued Medications Generic Name Dose Route Start Last Admin Trade Name Nitoq PRN Reason Stop Dose Admin Albuterol/Ipratropium 3 ml 04/19/23 11:35 04/19/23 12:09 Albuterol/Iprat 2.5/0.5mg 3 Ml Ampul.Neb INHALE 04/19/23 11:36 3 ml ONCE ONE Administration Prednisone 40 mg 04/19/23 11:35 04/19/23 12:11 Prednisone 20 Mg Tablet PO 04/19/23 11:36 40 mg ONCE ONE Administration Medical Decision Making Medical Decision Making MDM Narrative: 22-year-old male with a past medical history of asthma, presenting to the ED complaining of productive cough, SOB, chest discomfort/tightness, and sore throat x2 weeks. On exam vital signs stable, NAD, nontoxic appearing, physical exam as noted above with mild expiratory wheeze throughout. No pedal edema. Mild posterior oropharyngeal erythema, no exudates. Uvula midline. Concern for viral illness vs asthma exacerbation vs bronchitis. Rule out pneumonia and strep pharyngitis. No evidence of [employer] WORKER or retropharyngeal abscess. Lower suspicion for ACS/PE Plan: Viral testing, rapid strep, CXR, DuoNeb, p.o. prednisone, re-evaluate Please refer to course for remaining clinical decision making, interpretation of labs/imaging results, and discussions with consultants and/or family members. Differential Diagnosis Differential Diagnoses: The differential diagnosis associated with the presentation includes As above Lab Data [facility] Lab Attestation statement: I reviewed the patient's lab results. Labs: Lab Results 04/19/23 04/19/23 Range/Units 10:57 11:38 COVID-19 (POLY) Negative (Negative) COVID-19 Clin Com See Note S. pyogenes GrpA MARZENA Negative (Negative) Independent Interpretation I performed an independent interpretation of an: Plain X-Ray Radiology Impression Discussion of test interpretation with radiology: I have reviewed the radiologist's reading. Independent Historian Clinical information obtained from an independent historian. History obtained from or confirmed by: Parent External Record Review External record reviewed: Inpatient record, Office record, Outpatient record, Prior outpatient labs, Prior outpatient radiology, Primary care record and Outside ED record Tests considered The following testing was considered but not selected: As above Prescription Management I considered prescription management with: Antibiotic Chronic Conditions Patient?s care impacted by: Other (Asthma) Discharge Plan Discharge Clinical Impression: Asthma, Upper respiratory infection Patient Disposition: Home, Self-Care Instructions: Asthma (DC) Additional Instructions: You tested negative for COVID and strep. your x-ray does not show pneumonia Please take prednisone as prescribed and use inhaler Follow-up with her doctor Is symptoms persist or worsen return to the ED Prescriptions: New prednisone 20 mg tablet 40 mg PO DAILY 5 Days Qty: 10 0RF albuterol sulfate 90 mcg/actuation HFA aerosol inhaler 2 puff inhalation Q4-6H PRN (Reason: shortness of breath or wheezing) Qty: 6.7 0RF No Action nicotine (polacrilex) 2 mg Gum 2 mg buccal Q2H PRN (Reason: Nicotine Cravings) Qty: 30 0RF fluoxetine [Prozac] 20 mg capsule 20 mg PO DAILY Qty: 30 1RF trazodone 50 mg tablet 50 mg PO BEDTIME Qty: 30 0RF Referrals: Physician,Unknown J [Primary Care Provider] - 3 days
[2023-04-19 11:57] LABS: IDNOW Serial# 08D9AD1C; Strep A Nucleic Acid Negative (Negative)
[2023-04-19] MEDS: Albuterol/Iprat 2.5/0.5MG 3 ML AMPUL.NEB INHALE (12:09)
[2023-04-19 12:11] VITALS: PULSE 72; RESP 16; O2SAT 97
[2023-04-19] MEDS: predniSONE 20 MG TABLET 40 MG PO (12:11)
== END 2023-04-19 13:36 | disposition home or self-care (01) ==
PROVIDERS: Physician Assistant; Emergency Provider Emergency Medicine
DX: J06.9 Acute upper respiratory infection, unspecified (principal); R06.02 Shortness of breath; J45.909 Unspecified asthma, uncomplicated; F17.200 Nicotine dependence, unspecified, uncomplicated; Z11.52 Encounter for screening for COVID-19; Z20.822 Contact with and (suspected) exposure to COVID-19; Z71.6 Tobacco abuse counseling; Z79.899 Other long term (current) drug therapy
CPT/HCPCS: 71046; 87635; 87651; 94640; 99283; 99284

== ENCOUNTER 2023-08-13 08:26 | Emergency (ER) | payer OTHER, MEDICARE, MEDICAID, SELFPAY ==
--- NOTE | ~2023-08-13 | XR_ITS ---
EXAMINATION: XR CHEST CLINICAL INFORMATION: Shortness of breath COMPARISON: 04/19/2023 TECHNIQUE: Frontal view of the chest was obtained. FINDINGS: Lungs are well-inflated and clear. Trachea is midline in position. No interstitial disease, consolidation or mass. No pleural effusion or pneumothorax. Cardiac silhouette and pulmonary vessels are normal in size. The mediastinum and carlos have normal contour. The visualized bones and upper abdomen are unremarkable. XR/XR chest 1V IMPRESSION: Lungs have a normal appearance. No acute cardiopulmonary abnormality.
[2023-08-13 08:42] VITALS: BP 156/86; PULSE 99; RESP 18; TEMP 36.9; O2SAT 99; BMI 25.8
--- NOTE | 2023-08-13 09:17 | ED.NAVMDI ---
HPI - Nausea/Vomiting/Diarrhea General Chief complaint: Nausea/Vomiting/Diarrhea Stated complaint: SOB, vomiting, diarrhea Time Seen by Provider: 08/13/23 09:11 Source: patient Mode of arrival: ambulatory Limitations: no limitations History of Present Illness HPI Narrative: 22-year-old male history of major depressive disorder presenting to the emergency department with fatigue, malaise, myalgias, congestion, wheezing x5 days and nausea and vomiting that started this morning. Patient thought initially this was just asthma however it seems to be getting worse. Denies sick contacts. Denies chest pain, shortness of breath, hematemesis, melena, hematochezia, diarrhea, abdominal pain, headache, vision changes, weakness. Patient is still eating and drinking without difficulty. Related Data Previous Rx's Medication Instructions Recorded nicotine (polacrilex) 2 mg gum 2 mg buccal Q2H PRN Nicotine 02/23/22 Cravings #30 ea fluoxetine 20 mg capsule (Prozac) 20 mg PO DAILY #30 caps 03/26/22 trazodone 50 mg tablet 50 mg PO BEDTIME #30 tabs 03/26/22 albuterol sulfate 90 mcg/actuation 2 puff inhalation Q4-6H PRN 04/19/23 aerosol inhaler shortness of breath or wheezing #6.7 grams prednisone 20 mg tablet 40 mg (2 x 20 mg) PO DAILY 5 days 04/19/23 #10 tabs albuterol sulfate 90 mcg/actuation 2 inh inhalation Q4-6H PRN 08/13/23 breath activated powder inhaler shortness of breath or wheezing #1 ea ondansetron 4 mg disintegrating 4 mg PO Q6H PRN nausea and 08/13/23 tablet vomiting #14 tabs Allergies Allergy/AdvReac Type Severity Reaction Status Date / Time ENVIRONMENTAL Allergy Intermediate ITCHY Uncoded 02/18/20 16:51 WATERY EYES. Review of Systems Review of Systems: Yes all other systems are reviewed and are negative PMFSH Past Medical History Attestation statement: The following information was validated with the patient. Source: old records reviewed and nursing notes reviewed Medical History STI (sexually transmitted infection) No known health problems Social History Social History Household Members: Family Household Members Other:: Mom, 2 younger brothers Housing: Apartment Do you presently have visiting nurse or other home services: No Patient Tobacco Use Status: Current everyday Tobacco user Tobacco use type: Smokeless Tobacco e-Cigarette/Vaping Use: Never Used Second Hand Smoke Exposure: No Substance Use Type: Marijuana Advance Directives: No Advance Directives Information Provided: No service: No Physical Exam Vital Signs: Vital Signs: Last Vital Signs Temp 98.4 F 08/13/23 08:42 Pulse 99 08/13/23 08:42 Resp 18 08/13/23 08:42 BP 156/86 H 08/13/23 08:42 Pulse Ox 99 08/13/23 08:42 O2 Del Method Room Air 08/13/23 08:42 BMI result Body Mass Index 25.8 vss Appearance: Alert.? Oriented X3.? No acute distress.? Head: Normocephalic, atraumatic, no step-offs or deformities Eyes: Pupils equal, round and reactive to light.? CVS: Normal heart rate and rhythm.? Pulses normal.? Respiratory: No respiratory distress.? Breath sounds normal.? Abdomen: Soft and nontender.? Skin: Skin warm and dry.? Normal skin color.? Normal skin turgor.? Extremities: No lower extremity edema.? No calf ttp. 5/5 strength to bilateral upper and lower extremities Back: No midline tenderness, no C-spine tenderness, full range of motion, no CVA tenderness bilaterally Neuro: Oriented X 3.? No motor deficit.? No sensory deficit. CN 2-12 intact Course Reevaluation(s) Reevaluation #1: Influenza positive. Chest x-ray lungs have a normal parents. No cardiopulmonary abnormalities. Patient reporting some nausea will discharge home with Zofran. Educated patient on diagnosis and treatment plan, answered all question, patient verbalizes understanding. At this time patient will be discharged home, advised to return with new or worsening symptoms. Educated on worrisome signs and symptoms and when to return. At this time I feel comfortable discharge home. Medical Decision Making Medical Decision Making [facility] Narrative: 09 22-year-old male presents with upper respiratory symptoms x5 days and nausea and vomiting since this morning. No known sick contacts. Physical examination benign. This is likely viral illness. Unlikely acute respiratory distress, PE, pneumonia, ACS, dissection, obstruction, acute abdomen, appendicitis, diverticulitis, pancreatitis, cholecystitis. Will rule out flu versus COVID versus RSV. Plan at this time viral testing, x-ray for shortness of breath. No indication for labs. I do not suspect metabolic derangements Differential Diagnosis Differential Diagnoses: The differential diagnosis associated with the presentation includes his is likely viral illness. Unlikely acute respiratory distress, PE, pneumonia, ACS, dissection, obstruction, acute abdomen, appendicitis, diverticulitis, pancreatitis, cholecystitis. Will rule out flu versus COVID versus RSV. Admission/Observation Consideration of admission/observation: Escalation of care including admission/observation considered Lab Data MDM Lab Attestation statement: I reviewed the patient's lab results. Labs: Lab Results 08/13/23 Range/Units 08:50 Influenza Type A (PCR) POSITIVE A (Negative) Influenza Type B (PCR) NEGATIVE (Negative) RSV RNA Qual (PCR) NEGATIVE (Negative) SARS-CoV-2 RNA (RT-PCR) NEGATIVE (Negative) Independent Interpretation I performed an independent interpretation of an: Plain X-Ray (XR/XR chest 1V IMPRESSION: Lungs have a normal appearance. No acute cardiopulmonary abnormality. ) Radiology Impression Discussion of test interpretation with radiology: I have reviewed the radiologist's reading. External Record Review External record reviewed: Inpatient record, Office record, Outpatient record, Prior outpatient labs, Prior outpatient radiology, Primary care record and Outside ED record Prescription Management I considered prescription management with: Other (albuterol. zofran ) Chronic Conditions Patient?s care impacted by: Other (Sexually transmitted infection history, major depression, ) Social Determinants Patient?s care significantly limited by Social Determinants of Health including: Other Social Determinant of Health Critical Care Time Critical Care Time Critical Care Time: No Discharge Plan Discharge Clinical Impression: Viral illness, Influenza, Nausea Patient Disposition: Home, Self-Care Instructions: Viral Syndrome (ED) Additional Instructions: Take your medications as prescribed. If you were prescribed antibiotics today, it is important that you take your medication to their entirety, do not skip any doses, do not finish them early. Follow-up with your primary care provider this week. Return to the emergency department with new or worsening symptoms. Such as fevers, chills, chest pain, shortness of breath, nausea, vomiting, dizziness, headache, vision changes, lethargy In case of emergency call 911 XR/XR chest 1V IMPRESSION: Lungs have a normal appearance. No acute cardiopulmonary abnormality. Prescriptions: New ondansetron 4 mg tablet,disintegrating 4 mg PO Q6H PRN (Reason: nausea and vomiting) Qty: 14 0RF albuterol sulfate 90 mcg/actuation aerosol powdr breath activated 2 inh inhalation Q4-6H PRN (Reason: shortness of breath or wheezing) Qty: 1 0RF No Action nicotine (polacrilex) 2 mg Gum 2 mg buccal Q2H PRN (Reason: Nicotine Cravings) Qty: 30 0RF fluoxetine [Prozac] 20 mg capsule 20 mg PO DAILY Qty: 30 1RF trazodone 50 mg tablet 50 mg PO BEDTIME Qty: 30 0RF prednisone 20 mg tablet 40 mg PO DAILY 5 Days Qty: 10 0RF albuterol sulfate 90 mcg/actuation HFA aerosol inhaler 2 puff inhalation Q4-6H PRN (Reason: shortness of breath or wheezing) Qty: 6.7 0RF Referrals: Lucille Quesada RN [Emergency Nurse] - 2 days Stand Alone Forms: Work/School Release
[2023-08-13 09:32] LABS: Influenza A PCR POSITIVE (Negative); Influenza B PCR NEGATIVE (Negative); Resp Syncy Virus RNA Qual PCR NEGATIVE (Negative); SARS COV2 PCR INHOUSE NEGATIVE (Negative)
== END 2023-08-13 11:20 | disposition home or self-care (01) ==
PROVIDERS: Physician Assistant Medical; Emergency Provider Emergency Medicine Emergency Medical Services
DX: J10.1 Influenza due to other identified influenza virus with other respiratory manifestations (principal); B34.9 Viral infection, unspecified; R11.2 Nausea with vomiting, unspecified; R06.02 Shortness of breath; M79.10 Myalgia, unspecified site; Z11.52 Encounter for screening for COVID-19; Z20.822 Contact with and (suspected) exposure to COVID-19
CPT/HCPCS: 0241U; 71045; 99283; 99284

== ENCOUNTER 2024-02-29 05:13 | Emergency (ER) | payer OTHER, MEDICARE, MEDICAID, SELFPAY ==
[2024-02-29 05:19] VITALS: BP 128/95; PULSE 83; RESP 16; TEMP 36.4; O2SAT 98; BMI 25.8
[2024-02-29 06:06] LABS: COVID-19 Test Negative (Negative); IDNOW Serial# 08D9AD1C; IDNOW Serial# 152EDE1D; Influenza A Negative (Negative); Influenza B2 Negative (Negative)
--- NOTE | 2024-02-29 06:18 | ED.URI ---
HPI - URI/Sore Throat General Chief Complaint: Upper Respiratory Symptoms Stated Complaint: Cough Time Seen by Provider: 02/29/24 06:11 Source: patient Mode of arrival: ambulatory Limitations: no limitations History of Present Illness ED Provider: Dr. Mariscal HPI Narrative: Patient is a 23yo male with history of asthma who presents with 1 week of cough, now having coughing fits where he cant catch his breath. He denies wheezing or fever. Feels like he is getting worse. Related Data Previous Rx's ?Medication ?Instructions ?Recorded nicotine (polacrilex) 2 mg gum 2 mg buccal Q2H PRN Nicotine 02/23/22 Cravings #30 ea fluoxetine 20 mg capsule (Prozac) 20 mg PO DAILY #30 caps 03/26/22 trazodone 50 mg tablet 50 mg PO BEDTIME #30 tabs 03/26/22 albuterol sulfate 90 mcg/actuation 2 puff inhalation Q4-6H PRN 04/19/23 aerosol inhaler shortness of breath or wheezing #6.7 grams prednisone 20 mg tablet 40 mg (2 x 20 mg) PO DAILY 5 days 04/19/23 #10 tabs albuterol sulfate 90 mcg/actuation 2 inh inhalation Q4-6H PRN 08/13/23 breath activated powder inhaler shortness of breath or wheezing #1 ea ondansetron 4 mg disintegrating 4 mg PO Q6H PRN nausea and 08/13/23 tablet vomiting #14 tabs psvlumwfuzbhp-[id number]-tbdgcgjjgwk 5 10 ml PO Q4H PRN cough #473 mL 02/29/24 mg-10 mg-100 mg/5 mL oral liquid Allergies Allergy/AdvReac Type Severity Reaction Status Date / Time ENVIRONMENTAL Allergy Intermediate ITCHY Uncoded 02/29/24 05:20 WATERY EYES. Review of Systems Review of Systems: Yes all other systems are reviewed and are negative Neurologic: Denies Sensory deficit (Neuro) PMFSH Past Medical History Medical History STI (sexually transmitted infection) No known health problems Social History Social History Household Members: Family Household Members Other:: Mom, 2 younger brothers Housing: Apartment Do you presently have visiting nurse or other home services: No Patient Tobacco Use Status: Current everyday Tobacco user Tobacco use type: Smokeless Tobacco e-Cigarette/Vaping Use: Never Used Second Hand Smoke Exposure: No Substance Use Type: Marijuana Advance Directives: No Advance Directives Information Provided: Yes Do you have a plan to hurt others: No Plan service: No Physical Exam Vital Signs: Vital Signs: Last Vital Signs Temp 97.5 F 02/29/24 05:19 Pulse 83 02/29/24 05:19 Resp 16 02/29/24 05:19 BP 128/95 H 02/29/24 05:19 Pulse Ox 98 02/29/24 05:19 O2 Del Method Room Air 02/29/24 05:19 BMI result Body Mass Index 25.8 Const: General: healthy appearing Nutritional Appearance: average body habitus Orientation/consciousness: oriented to person and patient oriented x3 Limitations: no limitations HEENT: Head: Yes normal to inspection Ears: external ears normal General nose exam: Normal external nose present Mouth: Normal oral and palatal mucosa present and oropharynx normal Throat: Yes posterior oropharynx normal Eyes: General: appearance normal, both eyes and all related structures Neck: Other: supple Neck: Yes normal visual inspection Chest: Chest palpation & inspection: normal inspection of the chest Resp: Auscultation: clear to auscultation bilaterally Cardio: Jugular venous distension: no JVD Rate: regular rate Rhythm: regular rhythm Heart sounds: S1 normal heart sound present and S2 normal heart sound present GI: Inspection: Yes normal to inspection Palpation (GI): Soft to palpation, nontender and No hepatosplenomegaly present Auscultation: normal bowel sounds : General: Yes no CVA tenderness Back/Spine/Pelvis: Back: no CVA tenderness Skin: General skin exam: no rashes or lesions noted Neuro: General: oriented to person and patient oriented x3 Cranial nerves: Yes CN's II-XII intact bilaterally Motor exam (neuro): 5/5 motor strength present throughout Sensory Exam: No Sensory deficit (Neuro) Extrem: General: Yes normal to inspection Psych: Appearance: grossly normal Course Reevaluation(s) Reevaluation #1: patient well appearing, no acute distress, clear lungs, rsv flu covid all negative. Time: 06:23 Medications Administered Discontinued Medications Generic Name Dose Route Start Last Admin Trade Name Freq PRN Reason Stop Dose Admin Guaifenesin 10 ml 02/29/24 06:25 02/29/24 06:28 Guaifenesin 200 Mg/10 Ml 10 Ml Liquid PO 02/29/24 06:26 10 ml ONCE ONE Administration Medical Decision Making Differential Diagnosis Differential Diagnoses: The differential diagnosis associated with the presentation includes (pneumonia, asthma, covid, flu, rsv, upper respiratory tract infection) Lab Data Labs: Lab Results 02/29/24 Range/Units 05:31 COVID-19 (POLY) Negative (Negative) COVID-19 Clin Com See Note Influenza Type A (MARZENA) Negative (Negative) Influenza Type B (MARZENA) Negative (Negative) Influenza A & B Note See Note Tests considered The following testing was considered but not selected: CXR considered but clear lungs, no fever so not indicated Prescription Management I considered prescription management with: Antibiotic (no evidence of pneumonia) Chronic Conditions Patient?s care impacted by: Other (asthma) Discharge Plan Discharge Clinical Impression: Upper respiratory infection Patient Disposition: Home, Self-Care Instructions: Upper Respiratory Infection (ED), Viral Syndrome (ED) Prescriptions: New pwhvdtgfxefmc-BI-khrdrtstrna 5-10-100 mg/5 mL liquid 10 ml PO Q4H PRN (Reason: cough) Qty: 473 0RF No Action nicotine (polacrilex) 2 mg Gum 2 mg buccal Q2H PRN (Reason: Nicotine Cravings) Qty: 30 0RF fluoxetine [Prozac] 20 mg capsule 20 mg PO DAILY Qty: 30 1RF trazodone 50 mg tablet 50 mg PO BEDTIME Qty: 30 0RF prednisone 20 mg tablet 40 mg PO DAILY 5 Days Qty: 10 0RF albuterol sulfate 90 mcg/actuation HFA aerosol inhaler 2 puff inhalation Q4-6H PRN (Reason: shortness of breath or wheezing) Qty: 6.7 0RF ondansetron 4 mg tablet,disintegrating 4 mg PO Q6H PRN (Reason: nausea and vomiting) Qty: 14 0RF albuterol sulfate 90 mcg/actuation aerosol powdr breath activated 2 inh inhalation Q4-6H PRN (Reason: shortness of breath or wheezing) Qty: 1 0RF Referrals: Physician,None [Primary Care Provider] - 3 days Print Language: Pakistani
[2024-02-29] MEDS: guaiFENesin 200 MG/10 ML 10 ML LIQUID PO (06:28)
[2024-02-29 06:34] VITALS: BP 128/95; PULSE 83; RESP 16; TEMP 36.4; O2SAT 98
== END 2024-02-29 06:34 | disposition home or self-care (01) ==
PROVIDERS: Emergency Provider Emergency Medicine
DX: J06.9 Acute upper respiratory infection, unspecified (principal); R05.9 Cough, unspecified; J45.909 Unspecified asthma, uncomplicated
CPT/HCPCS: 87502; 87635; 99282; 99283

== ENCOUNTER 2024-03-09 19:05 | Emergency (ER) | payer OTHER, MEDICARE, MEDICAID, SELFPAY ==
--- NOTE | 2024-03-09 19:17 | ED_ITS ---
HPI - Psych General Chief Complaint: Psychiatric Symptoms Stated Complaint: SI Time Seen by Provider: 03/09/24 20:16 Source: patient Mode of arrival: ambulatory Limitations: no limitations History of Present Illness ED Provider: Dr. Francisca Tapia HPI Narrative: Patient comes to the emergency room complaining of life stressors. Initially when patient arrived to triage, he mentioned being vaguely suicidal. Patient states that now that he feels sober, was able to process things through. Patient states that he broke up with his girlfriend of 4 months. Patient states that he had difficulty coping with it. 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 Patient states that he has a lot to live for, is not SI or HI. Related Data Previous Rx's ?Medication ?Instructions ?Recorded nicotine (polacrilex) 2 mg gum 2 mg buccal Q2H PRN Nicotine 02/23/22 Cravings #30 ea fluoxetine 20 mg capsule (Prozac) 20 mg PO DAILY #30 caps 03/26/22 trazodone 50 mg tablet 50 mg PO BEDTIME #30 tabs 03/26/22 albuterol sulfate 90 mcg/actuation 2 puff inhalation Q4-6H PRN 04/19/23 aerosol inhaler shortness of breath or wheezing #6.7 grams prednisone 20 mg tablet 40 mg (2 x 20 mg) PO DAILY 5 days 04/19/23 #10 tabs albuterol sulfate 90 mcg/actuation 2 inh inhalation Q4-6H PRN 08/13/23 breath activated powder inhaler shortness of breath or wheezing #1 ea ondansetron 4 mg disintegrating 4 mg PO Q6H PRN nausea and 08/13/23 tablet vomiting #14 tabs [id number]-[id number] 5 10 ml PO Q4H PRN cough #473 mL 02/29/24 mg-10 mg-100 mg/5 mL oral liquid Allergies Allergy/AdvReac Type Severity Reaction Status Date / Time ENVIRONMENTAL Allergy Intermediate ITCHY Uncoded 03/09/24 19:21 WATERY EYES. Review of Systems 2 Review of Systems: Constitutional : No Weight loss, No Fever, No Chills, No Night Sweats, No Fatigue, No Malaise ENT/Mouth : No Hearing loss, No Ear Pain, No Nasal Congestion, No Sinus Pain, No Hoarseness, No sore throat, No Rhinorrhea, No Swallowing Difficulty Eyes: No Eye Pain, No Swelling, No Redness, No Foreign Body, No Discharge, No Vision Changes Cardiovascular : No Chest Pain, No SOB, No Dyspnea on Exertion, No Orthopnea, No Edema, No Palpitations Respiratory : No Cough, No Sputum, No Wheezing, No Smoke Exposure, No Dyspnea Gastrointestinal : No Nausea, No Vomiting, No Diarrhea, No Constipation, No abdominal Pain, No Hematochezia, No Melena Genitourinary : no irregular bleeding, No Dysuria, No Urinary Frequency, No Hematuria, No Urinary Incontinence, No Urgency, No Flank Pain, No Urinary Flow Changes, No Hesitancy Musculoskeletal : No joint pain, No Myalgias, No Joint Swelling Skin : No Skin Lesions, No rash Neuro : No Weakness, No Numbness, No Paresthesias, No Loss of Consciousness, No Dizziness, No Headache Psych : No Anxiety/Panic, No Depression, No SI/HI/AH/VH, complaining of feeling stressed Heme/Lymph: No Bruising, No Bleeding,No Lymphadenopathy Endocrine : No Polyuria, No Polydipsia, No Temperature Intolerance PMFSH Past Medical History Medical History STI (sexually transmitted infection) No known health problems Social History Social History Household Members: Family Household Members Other:: Mom, 2 younger brothers Housing: Apartment Do you presently have visiting nurse or other home services: No Alcohol intake: current Alcohol type: beer Patient Tobacco Use Status: Current everyday Tobacco user Tobacco use type: Smokeless Tobacco Smoked in Last 30 Days: No e-Cigarette/Vaping Use: Never Used Second Hand Smoke Exposure: No Use of substances other than those prescribed or required for medical reasons: No Substance Use Type: Marijuana Advance Directives: No Advance Directives Information Provided: No Do you have a plan to hurt others: Feasible service: No Physical Exam 2 Vital Signs: Vital Signs: Last Vital Signs Temp 98 F 03/09/24 19:18 Pulse 100 03/09/24 19:18 Resp 19 03/09/24 19:18 BP 124/88 03/09/24 19:18 Pulse Ox 100 03/09/24 19:18 O2 Del Method Room Air 03/09/24 19:18 BMI result Body Mass Index 25.8 Const: Other: Appearance: Alert. Oriented X3. No acute distress. Eyes: Pupils equal, round and reactive to light. ENT: Pharynx normal. Neck: Normal inspection. Neck supple. No lymph nodes noted. No crepitus CVS: Normal heart rate and rhythm. Pulses normal. Normal S1 and S2 Respiratory: No respiratory distress. Breath sounds normal. No Wheezing. No rales Abdomen: Soft and nontender. No rigidity. No distention. Skin: Skin warm and dry. Normal skin color. Normal skin turgor. Extremities: No lower extremity edema. No Lacerations. No Rash Neuro: Oriented X 3. No motor deficit. No sensory deficit. Moving all extremities. No slurred speech. CN 2 through 12 grossly intact Psych: calm, cooperative, normal affect Course Course Course Narrative: This is a Rapid Medical Examination (RME) performed by Christina Santillan PA-C in triage. Full HPI, ROS, assessment and treatment plan per primary provider in the Main ED. 23 yo male with history of depression not on any medications, history of suicide attempt in the past who presents to ER for evaluation of SI and HI that started today. girlfriend broke up with him. 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 endorses alcohol use today. Plan: medical clearance, CARE team evaluation Medical Decision Making Medical Decision Making [facility] Narrative: My interpretation of labs: Normal hematology and chemistry, ETOH positive -at the time of evaluation, patient is clinically sober -care team evaluated the patient: Patient is not SI or HI, patient was given outpatient resources. Patient agrees with plan. Differential Diagnosis Differential Diagnoses: The differential diagnosis associated with the presentation includes (Anxiety, depression) Lab Data [facility] Lab Attestation statement: I reviewed the patient's lab results. 03/09/24 19:43 03/09/24 19:43 Labs: Lab Results 03/09/24 Range/Units 19:43 WBC 8.9 (4.8-10.8) X10*3/uL RBC 4.97 (4.60-5.80) X10*6/uL Hgb 14.3 (14.0-18.0) g/dl Hct 41.5 L (42.0-52.0) % MCV 83.5 (80.0-98.0) fL MCH 28.8 (27.0-33.0) pg MCHC 34.5 (31.0-36.0) g/dl RDW 13.0 (11.0-16.0) % Plt Count 364 D (160-400) X10*3/uL MPV 8.6 L (9.4-12.4) fL Immature Gran % (Auto) 0.5 H (0.0-0.4) % Neut % (Auto) 74.3 H (45-73) % Lymph % (Auto) 19.2 L (20-40) % Duchesne % (Auto) 5.1 (2-11) % Eos % (Auto) 0.6 (0-4) % Baso % (Auto) 0.3 (0-2) % Lymph # (Auto) 1.7 (1.2-4.9) X10*3/uL Duchesne # (Auto) 0.5 (0.1-1.2) X10*3/uL Eos # (Auto) 0.1 (0.0-0.4) X10*3/uL Baso # (Auto) 0.0 (0.0-0.2) X10*3/uL Abs Immat Gran (auto) 0.04 H (0.00-0.03) X10*3/uL Absolute Neuts (auto) 6.6 (2.0-8.3) x10*3/uL Absolute Nucleated RBC 0.000 (0.0-0.012) X10*3/uL Nucleated RBC % (auto) 0.0 (0.0-0.2) /100WBC Sodium 140 (135-145) mmol/L Potassium 3.8 (3.3-5.1) mmol/L Chloride 109 H (96-108) mmol/L Carbon Dioxide 20 L (22-29) mmol/L Anion Gap 15 (12-20) BUN 7 L (9-16) mg/dL Creatinine 0.98 (0.5-1.4) mg/dL Estim Creat Clear Calc 104.8 Estimated GFR > 60 Random Glucose 104 (60-115) mg/dL Calcium 9.8 (8.4-10.2) mg/dL Magnesium 2.3 (1.6-2.6) mg/dL Total Bilirubin 0.5 (0.0-1.0) mg/dL Direct Bilirubin 0.2 (0.0-0.5) mg/dL AST 21 (5-37) U/L ALT 20 (0-40) U/L Alkaline Phosphatase 60 (39-117) U/L Total Protein 7.9 (6.5-8.0) g/dL Albumin 4.7 (3.5-5.0) g/dL Urine Color Yellow Urine Appearance Clear Urine pH 5.5 (5.0-9.0) Ur Specific Dane <= 1.005 (1.005-1.025) Urine Protein Negative (Neg-Trace) mg/dL Urine Glucose (UA) Negative (Negative) mg/dL Urine Ketones Negative (Negative) mg/dL Urine Blood Negative (Negative) Urine Nitrite Negative (Negative) Ur Leukocyte Esterase Negative (Negative) Urine Opiates Screen Not Detected (Not Detect) Ur Buprenorphine Scrn Not Detected (Not Detect) ng/mL Ur Oxycodone Screen Not Detected (Not Detect) ng/mL Urine Methadone Screen Not Detected (Not Detect) ng/mL Urine Fentanyl Screen Not Detected (Not Detect) Ur Barbiturates Screen Not Detected (Not Detect) Ur Phencyclidine Scrn Not Detected (Not Detect) Ur Amphetamines Screen Not Detected (Not Detect) U Benzodiazepines Scrn Not Detected (Not Detect) Urine Cocaine Screen Not Detected (Not Detect) U Marijuana (THC) Screen Not Detected (Not Detect) Ethyl Alcohol 154 mg/dL Discharge Plan Discharge Clinical Impression: Anxiety, Alcohol intoxication Patient Disposition: Home, Self-Care Instructions: Abuse of Alcohol (ED), Anxiety (ED) Additional Instructions: Please follow-up with your primary care physician tomorrow. If you have any worsening or new symptoms, please return to the emergency room or call 911 Prescriptions: No Action nicotine (polacrilex) 2 mg Gum 2 mg buccal Q2H PRN (Reason: Nicotine Cravings) Qty: 30 0RF fluoxetine [Prozac] 20 mg capsule 20 mg PO DAILY Qty: 30 1RF trazodone 50 mg tablet 50 mg PO BEDTIME Qty: 30 0RF [id number]-FR-kfmaprydaht 5-10-100 mg/5 mL liquid 10 ml PO Q4H PRN (Reason: cough) Qty: 473 0RF prednisone 20 mg tablet 40 mg PO DAILY 5 Days Qty: 10 0RF albuterol sulfate 90 mcg/actuation HFA aerosol inhaler 2 puff inhalation Q4-6H PRN (Reason: shortness of breath or wheezing) Qty: 6.7 0RF ondansetron 4 mg tablet,disintegrating 4 mg PO Q6H PRN (Reason: nausea and vomiting) Qty: 14 0RF albuterol sulfate 90 mcg/actuation aerosol powdr breath activated 2 inh inhalation Q4-6H PRN (Reason: shortness of breath or wheezing) Qty: 1 0RF Interventions: Rowan-Suicide Risk Severity Scale Last Done: 03/09/24 19:42 Print Language: Latvian
[2024-03-09 19:18] VITALS: BP 124/88; PULSE 100; RESP 19; TEMP 36.6; O2SAT 100; BMI 25.8
[2024-03-09 19:50] LABS: MANUAL DIFF FLAG NO
[2024-03-09 19:55] LABS: Appearance Urine Clear; Color Urine Yellow; Glucose Urine UA Negative (Negative); Leukocyte Esterase Urine Negative (Negative); Nitrite Urine Negative (Negative); PH 5.5 (5.0-9.0); Specific Gravity - Urine <= 1.005 (1.005-1.025); Urine Blood Negative (Negative); Urine Ketones Negative (Negative); Urine Protein Negative (Neg-Trace)
[2024-03-09 20:02] LABS: Basophils Percent Auto 0.3 % (0-2); Eosinophils Absolute Auto 0.1 X10*3/uL (0.0-0.4); Eosinophils Percent Auto 0.6 % (0-4); Hematocrit 41.5 % (42.0-52.0); Hemoglobin 14.3 g/dl (14.0-18.0); Imm Gran Abs Auto 0.04 X10*3/uL (0.00-0.03); Imm Gran Pct Auto 0.5 % (0.0-0.4); Lymphocytes Absolute Auto 1.7 X10*3/uL (1.2-4.9); Lymphocytes Percent Auto 19.2 % (20-40); Mean Corpuscular HGB Conc 34.5 g/dl (31.0-36.0); Mean Corpuscular Hemoglobin 28.8 pg (27.0-33.0); Mean Corpuscular Volume 83.5 fL (80.0-98.0); Mean Platelet Volume 8.6 fL (9.4-12.4); Monocytes Absolute Auto 0.5 X10*3/uL (0.1-1.2); Monocytes Percent Auto 5.1 % (2-11); Neutrophils Absolute Auto 6.6 x10*3/uL (2.0-8.3); Neutrophils Percent Auto 74.3 % (45-73); Platelet Count 364 X10*3/uL (160-400); Red Blood Count 4.97 X10*6/uL (4.60-5.80); White Blood Count 8.9 X10*3/uL (4.8-10.8)
[2024-03-09 20:12] LABS: Amphetamine Screen Urine Not Detected (Not Detect); Barbiturates, Urine Not Detected (Not Detect); Benzodiazepines Screen Urine Not Detected (Not Detect); Buprenorphine Scr Not Detected (Not Detect); Cannabinoid Screen Urine Not Detected (Not Detect); Cocaine Screen Urine Not Detected (Not Detect); Fentanyl, urine Not Detected (Not Detect); Methadone Screen, Urine Not Detected (Not Detect); Opiate Screen Urine Not Detected (Not Detect); Oxycodone Screen Urine Not Detected (Not Detect); Phencyclidine Screen Urine Not Detected (Not Detect)
[2024-03-09 20:14] LABS: Alanine Aminotransferase 20 U/L (0-40); Albumin Level 4.7 g/dL (3.5-5.0); Alkaline Phosphatase 60 U/L (39-117); Anion Gap 15 (12-20); Aspartate Amino Transferase 21 U/L (5-37); Bilirubin Direct 0.2 mg/dL (0.0-0.5); Bilirubin Total 0.5 mg/dL (0.0-1.0); Blood Urea Nitrogen 7 mg/dL (9-16); Calcium 9.8 mg/dL (8.4-10.2); Carbon Dioxide 20 mmol/L (22-29); Chloride 109 mmol/L (96-108); Creatinine Clr Calc Pharmacy 104.8; Estimated Glomerular Filt Rate > 60; Ethanol 154 mg/dL; Glucose Random 104 mg/dL (60-115); Magnesium 2.3 mg/dL (1.6-2.6); Potassium 3.8 mmol/L (3.3-5.1); Sodium 140 mmol/L (135-145); Total Protein 7.9 g/dL (6.5-8.0)
[2024-03-09 22:43] VITALS: BP 124/88; PULSE 100; RESP 19; TEMP 36.6; O2SAT 100
== END 2024-03-09 22:45 | disposition home or self-care (01) ==
PROVIDERS: Physician Assistant; Emergency Provider Emergency Medicine
DX: F41.9 Anxiety disorder, unspecified (principal); F10.920 Alcohol use, unspecified with intoxication, uncomplicated; Y90.6 Blood alcohol level of 120-199 mg/100 ml; F32.9 Major depressive disorder, single episode, unspecified; F17.200 Nicotine dependence, unspecified, uncomplicated; Z72.89 Other problems related to lifestyle; Z63.8 Other specified problems related to primary support group; Z91.51 Personal history of suicidal behavior; Z79.899 Other long term (current) drug therapy
CPT/HCPCS: 36415; 80048; 80076; 80307; 81003; 83735; 85025; 99284; S9485